=== PATIENT | female | born 1955 | race Caucasian/White ===

== ENCOUNTER → 2016-09-30 | Outpatient (CLI) | payer MEDICARE, OTHER ==
[2016-09-30 14:48] LABS: CH 31.1; HCT 40.3 % (34.0-46.0); HDW 2.14; HGB 13.9 gm/dL (11.4-16.0); MCH 31.8 pg (25.0-35.0); MCHC 34.5 g/dL (31.0-37.0); MCV 91.9 fL (80.0-100.0); Mean Platelet Volume 7.3; RBC 4.39 m/uL (3.80-5.40); RDW 12.3 % (11.5-15.5); WBC 10.7 k/uL (3.8-10.6)
[2016-09-30 14:58] LABS: Anion Gap 11 mmol/L; Blood Urea Nitrogen 21 mg/dL (7-17); Calcium 9.4 mg/dL (8.4-10.2); Carbon Dioxide 25 mmol/L (22-30); Chloride 107 mmol/L (98-107); Glucose 117 mg/dL (74-99); Non-African American GFR(MDRD) >60 (>60 ml/min/1.73 sqM); Potassium 4.2 mmol/L (3.5-5.1); Sodium 143 mmol/L (137-145)
== END | disposition home or self-care (01) ==
LOC: LABWHC1 14:28
PROVIDERS: ATTEND Internal Medicine Clinical Cardiac Electrophysiology
DX: I47.1 Supraventricular tachycardia (principal); R03.0 Elevated blood-pressure reading, without diagnosis of hypertension
CPT/HCPCS: 36415; 80048; 85027

== ENCOUNTER 2016-10-10 11:46 | Day surgery (SDC) | payer MEDICARE, OTHER ==
[2016-10-03 11:02] VITALS: BMI 25.8
[~2016-10-10 11:46] MED LIST: DEXAMETHASONE SOD PHOSPHATE 10 MG/ML 1 ML VIAL IV ONE; HYDROmorphone 1 MG/ML 1 ML SYRINGE IVP PRN; LACTATED RINGERS 1,000 ML IV SCH; MIDAZOLAM 2 MG/2 ML VIAL IV PRN; ONDANSETRON 4 MG/2 ML VIAL IVP ONE
[2016-10-10] MEDS: SODIUM CHLORIDE 0.9% 1,000 ML IV SCH (12:15)
[2016-10-10] MEDS ORDERED: KETAMINE 10 MG/ML 20 ML VIAL ONE (12:50)
[2016-10-10] MEDS ORDERED: PROPOFOL 10 MG/ML 20 ML VIAL IV ONE (12:50)
[2016-10-10] MEDS ORDERED: ISOPROTERENOL 250 MCG/1.25 ML SYR IV ONE (12:50)
[2016-10-10] MEDS ORDERED: fentaNYL (PF) 50 MCG/ML 2 ML AMP ONE (12:50)
[2016-10-10] MEDS ORDERED: MIDAZOLAM 2 MG/2 ML VIAL ONE (12:50)
[2016-10-10] MEDS ORDERED: IODIXANOL 320 MG/ML 100 ML IV ONE ×2 (13:23)
[2016-10-10] MEDS ORDERED: LIDOCAINE 2% INJ 20 MG/ML SQ ONE ×2 (13:28→13:37)
[2016-10-10] MEDS ORDERED: ACETAMINOPHEN TAB 325 MG TAB PO PRN (14:56)
[2016-10-10] MEDS ORDERED: VERAPAMIL SR 120 MG TABLET.ER PO ONE (15:15)
--- NOTE | 2016-10-10 15:41 | PCN ---
60 year old female with recurrent palpitations, drug refractory and intolerant to Flecainide. She was on Atenolol and she continued to have rapid, supraventricular tachycardia, possibly atrial tachycardia. She was brought in for diagnostic EP study and possible ablation. The patient was brought to the EP lab in a fasting state. Written informed consent was obtained prior to the procedure. The left shoulder area was prepped and draped as per protocol and a 6 Tunisian was placed in the left subclavian vein. Via this, a decapolar catheter was positioned in the coronary sinus for coronary sinus pacing and recording. Next the right groin was prepped and draped as per protocol and three venous sheaths were placed in the right femoral vein. Via these, three diagnostic catheters were positioned in the right heart (high right atrial catheter, His bundle catheter, RV catheter). Sinus cycle length, 696 milliseconds, SD interval 165 milliseconds, QRS 95 milliseconds, QT 375 milliseconds, AH 97 milliseconds, HV interval 35 milliseconds. AV node Wenckebach block 340 milliseconds, VA Wenckebach block 380 milliseconds , atrial ERP 500/320 milliseconds, HRAVA ERP 500/370 ms, atrial conduction midline decremental. AV node ERP from the coronary sinus was 500/280 ms. Burst stimulation from the high right atrium was performed. No SVT was induced. Burst stimulation from the CS was performed, no SVT was induced. Parahisian pacing was performed, malika response was noted. There was no evidence for accessory pathway conduction either antegrade or retrograde. There was no evidence for slow pathway conduction. Isuprel was started wide open and at 2 mcg and then reduced to 1 mcg. She had a brisk response to Isuprel. AV node Wenckebach block 260 ms, VA Wenckebach block improved to 320 ms. Atrial extra stimulation was performed from the high right atrium and from the right ventricle and as well as from the coronary sinus after double extra stimuli, no SVT was induced. Burst stimulation was performed from all three sites. No SVT was induced. Isuprel was stopped. Burst stimulation and straight pacing was performed from the high right atrium. No SVT was induced. In the baseline state, the patient had short slow runs of high to low sequence, very similar to the sinus beats but there was no clear cut supraventricular tachycardia, sustained, that was induced. There was possibility of sinus node reentry while present could not really be proven either. At the end of the procedure, all catheters were removed and the patient was transferred back to telemetry. RESULT: Diagnostic EP study revealing normal sinus node function, normal AV node function, no evidence of slow pathway ( ) conduction, no evidence for accessory pathway conduction. No inducible supraventricular ventricular tachycardia. No atrial fibrillation could be induced despite burst pacing on high dose Isuprel. PLAN: The patient was intolerant of Flecainide. She is breaking through on Atenolol. I will treat her with Verapamil possibly 40 mg twice daily. If she continues to have these episodes and if we can document atrial fibrillation, then I may consider pulmonary vein isolation. However, I prefer to treat her medically at this point. MTDD
--- NOTE | 2016-10-10 16:10 | MISC ---
October 10, [address] Roy: I had the pleasure of seeing Greer Tolliver in electrophysiology follow up. Greer has a history of recurrent SVT, possibly atrial tachycardia. I brought her in for an EP study. She had no evidence of AV malika re-entry or accessory pathway conduction. I could not induce any specific atrial tachycardia. Therefore at this time, I do not have a clear cut diagnosis of atrial tachycardia or atrial fibrillation, but I will treat her with verapamil since her event monitor has shown very rapid SVT, possibly rapid atrial tachycardia. If she continues to have breakthrough episodes pulmonary vein isolation may be considered, but I will have to document this on event monitoring again before I proceed with this since we were not able to induce any arrhythmias on EP study. However, it is very clear that she does not have AV malika re-entry or any accessory pathway conduction at this time. Thank you for entrusting us with the care of your patient. Warm regards. Sincerely, SANJU
[2016-10-11] MEDS: SODIUM CHLORIDE 0.9% 1,000 ML IV SCH (06:24)
--- NOTE | 2016-10-11 08:10 | DS ---
Greer is doing well. Her groins have healed well. there is in hematoma. There is minimal tenderness. Subclavian site is healed well. Heart sounds are normal. No murmurs. No gallops. No rub. Breath sounds are normal. No rhonchi. No crackles. Abdomen soft, nontender. Extremities warm. No edema. IMPRESSION: 1. Recurrent palpitations with documented supraventricular tachycardia. Likely atrial tachycardia/rapid atrial fibrillation with rapid ventricular rate. 2. Diagnostic EP study did not reveal any evidence of slow pathway conduction or AV malika reentry or any accessory pathway conduction. Therefore, no ablation was performed. Atrial fibrillation was not inducible. PLAN: The patient is intolerant of Flecainide and as atenolol does not control her symptoms, we will switch her to Verapamil 40 mg twice day. I may increase it further to 120 mg po daily long acting prep if she is able to tolerate this from a blood pressure standpoint. We will see her in a week's time and then I will see her again in about three to four months. If future event monitors document further AFIB with RVR, pulmonary vein isolation may be considered. SANJU
[2016-10-11 08:31] VITALS: BP 118/56; PULSE 80; RESP 16; TEMP 98.2
[2016-10-11] MEDS ORDERED: LETROZOLE 2.5 MG TAB PO SCH (09:00)
[2016-10-11] MEDS ORDERED: VERAPAMIL 40 MG TAB PO SCH (09:00)
[2016-10-11] MEDS ORDERED: VERAPAMIL SR 120 MG TABLET.ER PO SCH (09:00)
== END 2016-10-11 11:30 | disposition home or self-care (01) ==
LOC: CATHEP 11:46 → 3OBS 14:54 → CATHEP 10-11 11:30
PROVIDERS: ATTEND Internal Medicine Clinical Cardiac Electrophysiology
DX: I47.1 Supraventricular tachycardia (principal); Z82.49 Family history of ischemic heart disease and other diseases of the circulatory system; Z79.899 Other long term (current) drug therapy; Z79.811 Long term (current) use of aromatase inhibitors
CPT/HCPCS: 93623; 93620; C1894; C1769; C1730 ×3; J2001; Q9967

== ENCOUNTER 2017-04-04 17:59 | Emergency (ER) | payer MEDICARE, OTHER ==
--- NOTE | 2017-04-04 18:36 | ED ---
Chest Pain HPI - General Chief Complaint: Chest Pain Stated Complaint: Chest Pain Time Seen by Provider: 04/04/17 18:10 Source: patient, RN notes reviewed, old records reviewed Mode of arrival: ambulatory Limitations: no limitations - History of Present Illness Initial Comments: This is a 61-year-old female who presents with complaints of intermittent fast heart rate over last week or last minutes at a time also some lower midsternal chest pain sharp heartburn like in nature mild to moderate in severity also last a few minutes she did feeling tired lately to noticing her heart rate going fast or intermittently lately. No fevers chills sweats nausea vomiting or other symptoms she states she had a cath in October of this year which was negative. She is scheduled to have a heart monitor be placed she states Dr. So believes she may be in A. fib sporadically MD Complaint: chest pain, other - Related Data Home Medications Medication Instructions Recorded Confirmed Letrozole [Femara] 2.5 mg PO DAILY 10/03/16 04/04/17 Verapamil HCl 120 mg PO DAILY 04/04/17 04/04/17 Previous Rx's Medication Instructions Recorded Ibuprofen 800 mg PO Q6HR PRN #20 tablet 04/04/17 Allergies Allergy/AdvReac Type Severity Reaction Status Date / Time No Known Allergies Allergy Verified 04/04/17 18:44 Review of Systems ROS Statement: Those systems with pertinent positive or pertinent negative responses have been documented in the HPI. ROS Other: All systems not noted in ROS Statement are negative. EKG Findings - EKG Results: EKG: interpreted by ERMD, sinus rhythm (Sinus tachycardia rate of 104. Interval 170 QRS duration 80 daily since QTC of 362/476. Crit here for LVH nonspecific ST configuration.) Past Medical History Past Medical History: Atrial Fibrillation, Cancer, GERD/Reflux Additional Past Medical History / Comment(s): hx. breast cancer History of Any Multi-Drug Resistant Organisms: None Reported Past Surgical History: Ablation, Cholecystectomy, Orthopedic Surgery Additional Past Surgical History / Comment(s): right knee surg., colonoscopy, cataract removal with lens implant, CARDIAC ABLATION Past Anesthesia/Blood Transfusion Reactions: No Reported Reaction Past Psychological History: Anxiety Smoking Status: Never smoker Past Alcohol Use History: None Reported Past Drug Use History: None Reported - Past Family History Mother Family Medical History: Cancer Father Family Medical History: Cancer General Exam - General Exam Comments Initial Comments: This is a well-developed well-nourished awake alert oriented 3 female Limitations: no limitations General appearance: alert, in no apparent distress, anxious Head exam: Present: atraumatic, normocephalic, normal inspection Eye exam: Present: normal appearance, PERRL, EOMI. Absent: scleral icterus, conjunctival injection, periorbital swelling ENT exam: Present: normal exam, mucous membranes moist Neck exam: Present: normal inspection. Absent: tenderness, meningismus, lymphadenopathy Respiratory exam: Present: normal lung sounds bilaterally. Absent: respiratory distress, wheezes, rales, rhonchi, stridor Cardiovascular Exam: Present: regular rate, normal rhythm, normal heart sounds. Absent: systolic murmur, diastolic murmur, rubs, gallop, clicks GI/Abdominal exam: Present: soft, normal bowel sounds. Absent: distended, tenderness, guarding, rebound, rigid Extremities exam: Present: normal inspection, full ROM, normal capillary refill. Absent: tenderness, pedal edema, joint swelling, calf tenderness Back exam: Present: normal inspection Neurological exam: Present: alert, oriented X3, CN II-XII intact Psychiatric exam: Present: normal affect, normal mood Skin exam: Present: warm, dry, intact, normal color. Absent: rash Course Vital Signs 04/04/17 04/04/17 18:01 20:26 Temperature 97.1 F L Pulse Rate 120 H 88 Respiratory 18 18 Rate Blood Pressure 168/79 123/65 O2 Sat by Pulse 97 99 Oximetry - Reevaluation(s) Reevaluation #1: 04/04/17 18:46 EKG was reviewed no changes from 10/11/2016. Chest Pain MDM - MDM I did review the imaging and reports no evidence of pulmonary embolism. I did discuss Pf[employer] the patient the presentation is consistent with costochondritis and xiphoid any patient will be at discharged on appropriate medication. Disposition Clinical Impression: Costalchondritis, Chest wall syndrome, Xiphoid pain Disposition: HOME SELF-CARE Condition: Good Instructions: Costochondritis (ED) Prescriptions: Ibuprofen 800 mg PO Q6HR PRN #20 tablet PRN Reason: Pain Referrals: Demarco Roy MD [Primary Care Provider] - 1-2 days
[2017-04-04 18:59] LABS: Basophils # (A) 0.1 k/uL (0-0.2); Basophils % (A) 0 %; Eosinophils # (A) 0.2 k/uL (0-0.7); Eosinophils % (A) 1 %; HCT 41.1 % (34.0-46.0); HGB 13.5 gm/dL (11.4-16.0); Lymphocytes # (A) 2.4 k/uL (1.0-4.8); Lymphocytes % (A) 20 %; MCH 30.1 pg (25.0-35.0); MCV 91.3 fL (80.0-100.0); Mean Platelet Volume 6.9; Monocytes # (A) 0.7 k/uL (0-1.0); Monocytes % (A) 6 %; Neutrophils # (A) 8.3 k/uL (1.3-7.7); Neutrophils % (A) 70 %; Platelet Count 295 k/uL (150-450); RDW 12.2 % (11.5-15.5); WBC 11.8 k/uL (3.8-10.6)
[2017-04-04 19:05] LABS: D-Dimer 0.8 mg/L FEU (<0.60)
[2017-04-04 19:08] LABS: ALT 53 U/L (9-52); AST 26 U/L (14-36); Albumin 3.8 g/dL (3.5-5.0); Alkaline Phosphatase 71 U/L (38-126); Amylase 30 U/L (30-110); Anion Gap 11 mmol/L; Blood Urea Nitrogen 23 mg/dL (7-17); Calcium 9.8 mg/dL (8.4-10.2); Carbon Dioxide 27 mmol/L (22-30); Chloride 105 mmol/L (98-107); Glucose 121 mg/dL (74-99); Lipase 87 U/L (23-300); Magnesium 1.9 mg/dL (1.6-2.3); Potassium 3.7 mmol/L (3.5-5.1); Sodium 143 mmol/L (137-145); Total Bilirubin 0.3 mg/dL (0.2-1.3); Total Protein 6.4 g/dL (6.3-8.2)
[2017-04-04 19:09] LABS: Partial Thromboplastin Time 23.5 sec (22.0-30.0); Prothrombin Time 10.2 sec (9.0-12.0)
[2017-04-04 19:17] LABS: Creatine Kinase 87 U/L (30-135)
[2017-04-04 19:29] LABS: Creatine Kinase MB 1.2 ng/mL (0.0-2.4); Troponin I <0.012 ng/mL (0.000-0.034)
--- NOTE | 2017-04-04 19:29 | XR ---
EXAMINATION TYPE: XR chest 2V DATE OF EXAM: 04/04/2017 COMPARISON: 01/17/2014 HISTORY: Chest pain TECHNIQUE: Frontal and lateral views of the chest are obtained. FINDINGS: Heart is normal. Lungs are clear of consolidation. There are no hilar masses. There are ch est leads. There are surgical clips over the left breast. Bony thorax appears intact. There is mild r eticular density in the lingula left upper lobe. IMPRESSION: There is some scarring in the lingula left upper lobe. No active cardiopulmonary disease . No change.
[2017-04-04] MEDS ORDERED: RX INFO: IV CONTRAST WAS GIVEN 1 EACH MISC MISCELLANE PRN (19:51)
--- NOTE | 2017-04-04 20:39 | CT ---
EXAMINATION TYPE: CT angio chest DATE OF EXAM: 04/04/2017 8:31 PM COMPARISON: NONE HISTORY: Mid chest pain today. CT DLP: 579.00 mGycm Automated exposure control for dose reduction was used. CONTRAST: CTA scan of the thorax is performed with IV Contrast, patient injected with 75 mL of Omnipaque 350, p ulmonary embolism protocol. There are 3-D post processed images.. FINDINGS: There is normal contrast opacification of the pulmonary arteries. I see no filling defects. Thoracic aorta appears normal. There is no evidence of mediastinal adenopathy. There are no hilar masses. Hear t size is fairly normal. There is mild coarsening of interstitial pulmonary markings. There is no evidence of a pulmonary mass . There is no pleural effusion. I see no bony destructive process. There is mild spurring in the thor acic spine. IMPRESSION: NO EVIDENCE OF PULMONARY EMBOLISM. MILD PULMONARY FIBROTIC CHANGES.
[2017-04-05 23:11] VITALS: BP 120/65; PULSE 94; RESP 18; TEMP 97.4
== END 2017-04-04 21:34 | disposition home or self-care (01) ==
LOC: EC 17:59
DX: M94.0 Chondrocostal junction syndrome [Tietze] (principal); I48.91 Unspecified atrial fibrillation; Z85.3 Personal history of malignant neoplasm of breast; Z79.899 Other long term (current) drug therapy
CPT/HCPCS: 99285 ×2; 36415; 93005; 85379; 83880; 80053; 84443; 82150; 82550; 82553; 83690; 83735; 84484; 85025; 85610; 85730; 71046; 71275; Q9967

== ENCOUNTER → 2018-05-25 | Outpatient (CLI) | payer MEDICARE, OTHER ==
--- NOTE | 2018-05-25 15:42 | US ---
EXAMINATION TYPE: US pelvic complete DATE OF EXAM: 05/25/2018 COMPARISON: CT CLINICAL HISTORY: R10.2 Pelvic Pain. TECHNIQUE: Transvaginal (TV) and Transabdominal (TA) . Transabdominal sonographic images of the pelvis were acquired. Transvaginal sonographic images were medically necessary to better assess the following anatomy: Date of LMP: Patient went through menopause at 48 EXAM MEASUREMENTS: Uterus: 5.4 x 2.3 x 2.8 cm Endometrial Stripe: 0.62 cm. 3mm of fluid in endometrium Right Ovary: 0.7 x 0.6 x 0.7 cm Left Ovary: obscured by bowel gas and atrophy 1. Uterus: Anteverted 2. Endometrium: 3mm of fluid in endometrium 3. Right Ovary: wnl 4. Left Ovary: Obscured by overlying bowel gas 5. Bilateral Adnexa: wnl 6. Posterior cul-de-sac: wnl IMPRESSION: 1. Small amount fluid through the endometrial canal. MTDD
== END | disposition home or self-care (01) ==
LOC: RADUSWWP 08:58
PROVIDERS: ATTEND Internal Medicine
DX: N85.8 Other specified noninflammatory disorders of uterus (principal); R10.2 Pelvic and perineal pain
CPT/HCPCS: 76830; 76856

== ENCOUNTER → 2018-08-29 | Outpatient (CLI) | payer MEDICARE, OTHER ==
[2018-08-29 18:38] LABS: Albumin 4.3 g/dL (3.80-4.90); Albumin/Globulin Ratio 2.05 (1.60-3.17); Anion Gap 9.4 mmol/L (4.00-12.00); Calcium 9.6 mg/dL (8.7-10.3); Carbon Dioxide 26.6 mmol/L (21.6-31.8); Globulin 2.1 g/dL (1.6-3.3); LDL Cholesterol,Calculated 76.6 mg/dL (0.0-131.0); Potassium 4.2 mmol/L (3.5-5.5); Total Bilirubin 0.5 mg/dL (0.2-1.2); Total Protein 6.4 g/dL (6.2-8.2); VLDL Calculation 16.4 mg/dL (5.00-40.00)
== END | disposition home or self-care (01) ==
LOC: LABWHC1 14:30
PROVIDERS: ATTEND Internal Medicine Clinical Cardiac Electrophysiology
DX: I10 Essential (primary) hypertension (principal); R00.2 Palpitations
CPT/HCPCS: 36415; 80053; 80061; 84443

== ENCOUNTER 2019-04-23 20:27 | Emergency (ER) | payer MEDICARE, OTHER ==
[2019-04-23 20:39] VITALS: RESP 18; TEMP 98.9
[2019-04-23] MEDS ORDERED: SODIUM CHLORIDE 0.9% 1,000 ML IV STA (20:56)
--- NOTE | 2019-04-23 21:01 | ED ---
General Adult HPI - General Chief complaint: Arrhythmia/Palpitations Stated complaint: arrhythmia Time Seen by Provider: 04/23/19 20:37 Source: patient, RN notes reviewed Mode of arrival: EMS Limitations: no limitations - History of Present Illness Initial comments: Patient is a pleasant 63-year-old female presenting to the emergency department palpitations. Onset of symptoms was a couple of hours ago. Patient feels her heart is skipping and sometimes going fast. Patient does have a history of similar symptoms previously associated with PACs. Patient has seen cardiology for this. There was discussion was whether or not to have cardiac ablation. No chest pain or dyspnea. Patient does admit to drinking some caffeinated pop. No energy drinks or diet pills. - Related Data Home Medications Medication Instructions Recorded Confirmed Verapamil HCl 120 mg PO HS 04/04/17 04/23/19 Aspirin EC [Ecotrin Low Dose] 81 mg PO DAILY PRN 04/23/19 04/23/19 Dicyclomine [Bentyl] 10 mg PO TID PRN 04/23/19 04/23/19 Allergies Allergy/AdvReac Type Severity Reaction Status Date / Time No Known Allergies Allergy Verified 04/23/19 21:05 Review of Systems ROS Statement: Those systems with pertinent positive or pertinent negative responses have been documented in the HPI. ROS Other: All systems not noted in ROS Statement are negative. Past Medical History Past Medical History: Atrial Fibrillation, Cancer, GERD/Reflux Additional Past Medical History / Comment(s): hx. breast cancer History of Any Multi-Drug Resistant Organisms: None Reported Past Surgical History: Ablation, Cholecystectomy, Orthopedic Surgery Additional Past Surgical History / Comment(s): right knee surg., colonoscopy, cataract removal with lens implant, CARDIAC ABLATION Past Anesthesia/Blood Transfusion Reactions: No Reported Reaction Past Psychological History: Anxiety Smoking Status: Never smoker Past Alcohol Use History: None Reported Past Drug Use History: None Reported - Past Family History Mother Family Medical History: Cancer Father Family Medical History: Cancer General Exam Limitations: no limitations Course Vital Signs 04/23/19 20:37 Temperature 98.9 F Pulse Rate 99 Respiratory 18 Rate Blood Pressure 153/80 O2 Sat by Pulse 97 Oximetry - Reevaluation(s) Reevaluation #1: 04/23/19 21:00 Patient was advised against caffeine use. Patient does complain of palpitations simultaneously with premature atrial complexes on cardiac technologist. EKG Findings - EKG Comments: EKG Findings:: Sinus rhythm and 96. PVC is present. NE 140. QRS 92. QT 380. QTC 480. Left axis. LVH criteria. Nonspecific ST-T. Medical Decision Making - Medical Decision Making Patient evaluated and resting comfortably in bed. Patient occasionally with palpitations but not as severe. Patient updated on results and need for follow- up. - Lab Data Result diagrams: 04/23/19 20:40 04/23/19 20:40 Lab Results 04/23/19 04/23/19 Range/Units 20:40 20:40 WBC 12.3 H (3.8-10.6) k/uL RBC 4.54 (3.80-5.40) m/uL Hgb 14.2 (11.4-16.0) gm/dL Hct 41.7 (34.0-46.0) % MCV 91.8 (80.0-100.0) fL MCH 31.3 (25.0-35.0) pg MCHC 34.1 (31.0-37.0) g/dL RDW 12.0 (11.5-15.5) % Plt Count 283 (150-450) k/uL Neutrophils % 72 % Lymphocytes % 20 % Monocytes % 4 % Eosinophils % 2 % Basophils % 1 % Neutrophils # 8.8 H (1.3-7.7) k/uL Lymphocytes # 2.4 (1.0-4.8) k/uL Monocytes # 0.5 (0-1.0) k/uL Eosinophils # 0.3 (0-0.7) k/uL Basophils # 0.1 (0-0.2) k/uL Sodium 141 (137-145) mmol/L Potassium 3.9 (3.5-5.1) mmol/L Chloride 110 H (98-107) mmol/L Carbon Dioxide 21 L (22-30) mmol/L Anion Gap 10 mmol/L BUN 17 (7-17) mg/dL Creatinine 0.60 (0.52-1.04) mg/dL Est GFR (CKD-EPI)AfAm >90 (>60 ml/min/1.73 sqM) Est GFR (CKD-EPI)NonAf >90 (>60 ml/min/1.73 sqM) Glucose 127 H (74-99) mg/dL Calcium 9.2 (8.4-10.2) mg/dL Magnesium 2.0 (1.6-2.3) mg/dL Total Bilirubin 0.5 (0.2-1.3) mg/dL AST 27 (14-36) U/L ALT 19 (4-34) U/L Alkaline Phosphatase 68 (38-126) U/L Total Protein 6.9 (6.3-8.2) g/dL Albumin 3.9 (3.5-5.0) g/dL TSH 1.330 (0.465-4.680) mIU/L Free T4 0.82 (0.78-2.19) ng/dL Free T3 pg/mL 3.9 (2.8-5.3) pg/ml - Radiology Data Radiology results: image reviewed (Chest x-ray shows surgical clips of the left breast. Normal sclerae left base, unchanged. Normal heart.) Disposition Clinical Impression: Premature atrial contraction Disposition: HOME SELF-CARE Condition: Stable Instructions (If sedation given, give patient instructions): Premature Atrial Contractions (ED) Additional Instructions: Please follow-up with cardiology and your primary care physician this week. Return for increased heart rate, pain, worsening symptoms or other concerns. You may take an additional one half pill of your verapamil in the morning if needed until follow-up and further advised. Is patient prescribed a controlled substance at d/c from ED?: No Referrals: Demarco Roy MD [Primary Care Provider] - 1-2 days Time of Disposition: 21:57
[2019-04-23 21:10] LABS: Basophils # (A) 0.1 k/uL (0-0.2); Basophils % (A) 1 %; Eosinophils # (A) 0.3 k/uL (0-0.7); Eosinophils % (A) 2 %; HCT 41.7 % (34.0-46.0); HGB 14.2 gm/dL (11.4-16.0); Lymphocytes # (A) 2.4 k/uL (1.0-4.8); Lymphocytes % (A) 20 %; MCH 31.3 pg (25.0-35.0); MCHC 34.1 g/dL (31.0-37.0); MCV 91.8 fL (80.0-100.0); Mean Platelet Volume 7.3; Monocytes # (A) 0.5 k/uL (0-1.0); Monocytes % (A) 4 %; Neutrophils # (A) 8.8 k/uL (1.3-7.7); Neutrophils % (A) 72 %; Platelet Count 283 k/uL (150-450); RBC 4.54 m/uL (3.80-5.40); WBC 12.3 k/uL (3.8-10.6)
[2019-04-23 21:19] LABS: ALT 19 U/L (4-34); AST 27 U/L (14-36); African American GFR (CKD) >90 (>60 ml/min/1.73 sqM); Albumin 3.9 g/dL (3.5-5.0); Alkaline Phosphatase 68 U/L (38-126); Anion Gap 10 mmol/L; Blood Urea Nitrogen 17 mg/dL (7-17); Calcium 9.2 mg/dL (8.4-10.2); Carbon Dioxide 21 mmol/L (22-30); Chloride 110 mmol/L (98-107); Glucose 127 mg/dL (74-99); Non-African American GFR(CKD) >90 (>60 ml/min/1.73 sqM); Potassium 3.9 mmol/L (3.5-5.1); Sodium 141 mmol/L (137-145); Total Bilirubin 0.5 mg/dL (0.2-1.3); Total Protein 6.9 g/dL (6.3-8.2)
--- NOTE | 2019-04-23 21:31 | XR ---
EXAMINATION TYPE: XR chest 2V DATE OF EXAM: 04/23/2019 COMPARISON: April 04, 2017 HISTORY: Dysrhythmia TECHNIQUE: FINDINGS: Heart is normal. Lungs are clear of consolidation. There is surgical clips over the left br east. There is small linear density left lung base. There is no pleural effusion. Bony thorax is inta ct. IMPRESSION: Previous surgery. Minimal scarring left lung base unchanged. Normal heart.
[2019-04-23 21:36] LABS: T4, Free (Free Thyroxine) 0.82 ng/dL (0.78-2.19)
[2019-04-23] MEDS ORDERED: VERAPAMIL 40 MG TAB PO STA (21:54)
[2019-04-23 22:18] VITALS: BP 129/63; PULSE 83
--- NOTE | 2019-04-25 05:13 | CDI ---
Dear Glenn Berumen DO: Please do addendum Physical Examination. Thank you, Se Zafar, Outreach Nurse. If you have any questions, please contact Casework Supervisor at [phone]. mtdD
== END 2019-04-23 22:34 | disposition home or self-care (01) ==
LOC: EC 20:27
DX: I49.1 Atrial premature depolarization (principal); I48.91 Unspecified atrial fibrillation; Z79.899 Other long term (current) drug therapy; Z85.3 Personal history of malignant neoplasm of breast; Z98.890 Other specified postprocedural states
CPT/HCPCS: 36415; 71046; 80053; 83735; 84439; 84443; 84481; 85025; 93005; 96360; 99285

== ENCOUNTER → 2019-11-11 | Outpatient (CLI) | payer MEDICARE, OTHER ==
[2019-11-11 08:32] LABS: HCT 43.9 % (34.0-46.0); HGB 14.4 gm/dL (11.4-16.0); MCH 30.1 pg (25.0-35.0); MCHC 32.7 g/dL (31.0-37.0); Mean Platelet Volume 7.2; Platelet Count 314 k/uL (150-450); RBC 4.77 m/uL (3.80-5.40); RDW 12.5 % (11.5-15.5); WBC 9.4 k/uL (3.8-10.6)
[2019-11-11 16:31] LABS: Albumin/Globulin Ratio 1.9 (1.60-3.17); Anion Gap 6.5 mmol/L (4.00-12.00); Calcium 9.3 mg/dL (8.7-10.3); Carbon Dioxide 26.5 mmol/L (21.6-31.8); Chol/HDL Ratio 4.06; Globulin 2.1 g/dL (1.6-3.3); Non-African American GFR(CKD) 76.8 (60.0-200.0); Potassium 4.4 mmol/L (3.5-5.5); Total Bilirubin 0.8 mg/dL (0.3-1.2); Total Protein 6.1 g/dL (6.2-8.2)
== END | disposition home or self-care (01) ==
LOC: LABWHC1 07:21
PROVIDERS: ATTEND Physician Assistant
DX: E78.5 Hyperlipidemia, unspecified (principal); R53.83 Other fatigue; I47.1 Supraventricular tachycardia; E55.9 Vitamin D deficiency, unspecified
CPT/HCPCS: 36415; 80053; 80061; 82306; 82607; 84443; 85027

== ENCOUNTER → 2020-03-09 | Outpatient (CLI) | payer MEDICARE, OTHER ==
--- NOTE | 2020-03-10 11:32 | BMR ---
EXAMINATION TYPE: MR breast BILAT wo/w con DATE OF EXAM: 03/09/2020 COMPARISON: Outside Bilateral breast mammogram November 20, 2019 BI-RADS 2 and older mammograms. CTA ch est April 04, 2017 HISTORY: Left breast pain, hx lt breast cancer diagnosed 2009. TECHNIQUE: A series of fat and water weighted images in the long and short axis views of both breasts are obtained in conjunction with dynamic contrast MRI with subtraction technique. The patient was i njected with 8 mL intravenous Gadavist gadolinium contrast. Three-dimensional and additional postpr ocessing imaging is created on independent workstation and reviewed during official interpretation of this study. FINDINGS: There is redemonstration of asymmetric diminished size to the left breast versus right negin st. There is heterogeneously dense fibroglandular tissue redemonstrated bilaterally. Occasional punct ate thin-walled cyst are scattered throughout both breasts on T2 and STIR weighted images. No suspici ous fat-containing masses on T1 axial images. Postcontrast images show mild/moderate background enhan cement slightly more prominent in the left breast versus right breast. Delayed dynamic postcontrast i maging shows no suspicious new intramammary adenopathy. No concerning new axillary adenopathy is note d bilaterally. With regards to the right breast. No suspicious enhancing masses or pathologic enhancement. No suspic ious skin thickening is seen. The chest wall is intact. With regards to the left breast there is stable oval thin-walled fluid collection with artifact from surrounding surgical clips representing small seroma in the posterior lateral mid to lower chest wall axial image 19 series 301. No pathologic enhancement or enhancing masses identified. No suspicious n ew skin thickening seen. Chronic nipple inversion or scarring bilateral lower left breast axial image 36 series 601 noted unchanged from 2018 CT. Underlying cardiomegaly is present. IMPRESSION: No MRI evidence for invasive malignancy in either breast. Stable posttreatment changes le ft breast. BI-RADS 2 benign findings right breast. BI-RADS 2 benign findings left breast. Recommendation: Manage patient on clinical basis. Return to routine follow-up, patient due for bilate ral breast mammogram monitoring in November 2020.
== END | disposition home or self-care (01) ==
LOC: RADMRIMAIN 14:09
PROVIDERS: ATTEND Internal Medicine Hematology & Oncology
DX: N64.4 Mastodynia (principal); C50.512 Malignant neoplasm of lower-outer quadrant of left female breast; Z98.890 Other specified postprocedural states
CPT/HCPCS: C8937; C8908; A9585; 77049

== ENCOUNTER → 2021-09-27 | Outpatient (CLI) | payer MEDICARE, OTHER ==
--- NOTE | 2021-09-28 00:58 | CT ---
EXAMINATION TYPE: CT sinus wo con DATE OF EXAM: 09/27/2021 COMPARISON: CT dated 06/18/2012 HISTORY: CHRONIC SINUSITIS CT DLP: 728.2 mGycm. Automated Exposure Control for Dose Reduction was Utilized. TECHNIQUE: CT scan of the sinuses is performed without contrast, axial images are obtained, coronal r eformatted images are also reviewed. FINDINGS: Deviated bony nasal septum convex to the right side with a small bony spur. Slight remodeling of the right inferior turbinate. Minimal mucosal thickening of the inferior aspect of the left middle crania l fossa. Pneumatization of the left vertical lamella. Patent infundibulum and ostiomeatal complex vamsi aterally. Clear maxillary sinuses, frontal sinus, ethmoid air cells and sphenoid sinus. Patent sphenoethmoidal recesses. Clear right mastoid air cells. Slightly hypopneumatized left mastoid air cells. Unremarkabl e visualized portion of the brain and orbits. Symmetrical unremarkable TMJs. IMPRESSION: No evidence of acute or chronic sinusitis. Deviated bony nasal septum and other findings as described above.
== END | disposition home or self-care (01) ==
LOC: RADCTMAIN 18:14
PROVIDERS: ATTEND Otolaryngology
DX: J32.9 Chronic sinusitis, unspecified (principal)
CPT/HCPCS: 70486

== ENCOUNTER 2021-10-05 15:46 | Emergency (ER) | payer MEDICARE, OTHER ==
[2021-10-05 15:50] VITALS: RESP 18
[2021-10-05 17:15] LABS: Basophils # (A) 0.1 k/uL (0-0.2); Basophils % (A) 1 %; Eosinophils # (A) 0.3 k/uL (0-0.7); Eosinophils % (A) 3 %; HCT 41.8 % (34.0-46.0); HGB 14.1 gm/dL (11.4-16.0); Lymphocytes # (A) 1.6 k/uL (1.0-4.8); Lymphocytes % (A) 14 %; MCH 31.5 pg (25.0-35.0); MCHC 33.8 g/dL (31.0-37.0); Mean Platelet Volume 7.6; Monocytes # (A) 0.6 k/uL (0-1.0); Monocytes % (A) 5 %; Neutrophils % (A) 77 %; Platelet Count 276 k/uL (150-450); RBC 4.49 m/uL (3.80-5.40); RDW 11.9 % (11.5-15.5); WBC 11.7 k/uL (3.8-10.6)
[2021-10-05 17:26] LABS: ALT 18 U/L (4-34); African American GFR (CKD) >90 (>60 ml/min/1.73 sqM); Anion Gap 9 mmol/L; Blood Urea Nitrogen 23 mg/dL (7-17); Calcium 8.9 mg/dL (8.4-10.2); Carbon Dioxide 23 mmol/L (22-30); Chloride 109 mmol/L (98-107); Glucose 123 mg/dL (74-99); Non-African American GFR(CKD) 82 (>60 ml/min/1.73 sqM); Sodium 141 mmol/L (137-145); Total Bilirubin 0.6 mg/dL (0.2-1.3); Total Protein 6.8 g/dL (6.3-8.2)
[2021-10-05 17:29] LABS: Partial Thromboplastin Time 24.5 sec (22.0-30.0); Prothrombin Time 10.7 sec (9.0-12.0)
[2021-10-05 17:32] LABS: AST 25 U/L (14-36); Alkaline Phosphatase 54 U/L (38-126); Magnesium 2.1 mg/dL (1.6-2.3); Potassium 4.4 mmol/L (3.5-5.1)
[2021-10-05 17:45] LABS: MCV 93.1 fL (80.0-100.0)
[2021-10-05 17:48] LABS: Amphetamine Screen,Urine Not Detected (NotDetected); Appearance,Urine Clear (Clear); Barbiturate Screen,Urine Not Detected (NotDetected); Benzodiazepines Screen,Urine Not Detected (NotDetected); Bilirubin,Urine Negative (Negative); Blood,Urine Moderate (Negative); Cocaine Screen,Urine Not Detected (NotDetected); Color,Urine Yellow; Glucose,Urine (UA) Negative (Negative); Hyaline Casts,Urine 8 /lpf (0-2); Ketones,Urine Negative (Negative); Leukocyte Esterase,Urine Negative (Negative); Methadone Screen, Urine Not Detected (NotDetected); Mucus,Urine Rare /hpf; Nitrite,Urine Negative (Negative); Opiate Screen,Urine Not Detected (NotDetected); Oxycodone Screen, Urine Not Detected (NotDetected); Phencyclidine Screen,Urine Not Detected (NotDetected); Protein,Urine Trace (Negative); RBC,Urine 21 /hpf (0-5); Specific Gravity,Urine 1.027 (1.001-1.035); Squamous Epithelial Cell,Urine <1 /hpf (0-4); Tricyclic Antidepressant,Urine Not Detected (NotDetected); Urn Cannabinoid Scrn Not Detected (NotDetected); Urobilinogen,Urine <2.0 mg/dL (<2.0); WBC,Urine 1 /hpf (0-5)
--- NOTE | 2021-10-05 17:53 | XR ---
EXAMINATION TYPE: XR chest 2V DATE OF EXAM: 10/05/2021 COMPARISON: 04/23/2019 HISTORY: Dysrhythmia TECHNIQUE: FINDINGS: There is no heart failure not confluent pneumonic infiltrate. Costophrenic angles are clear . There is clips over the left breast. Bony thorax is intact. IMPRESSION: No active cardiopulmonary disease. Minimal density over the left lung base could be some postsurgical changes in the lingula left upper lobe. No change compared to old exam.
--- NOTE | 2021-10-05 18:33 | ED ---
Arrhythmia/Palpitations HPI - General Chief Complaint: Arrhythmia/Palpitations Stated Complaint: chest pain Time Seen by Provider: 10/05/21 16:27 Source: patient Mode of arrival: ambulatory Limitations: no limitations - History of Present Illness Initial Comments: Patient complains of palpitations. This has been going on for a long time. Nothing makes it better or worse. She has taken no medicines. She has been diagnosed with atrial fibrillation in the past. She has no swelling in the arms or legs. She has no shortness of breath. She has no chest pain or pressure or tightness. She has no nausea or vomiting or diaphoresis. - Related Data Home Medications Medication Instructions Recorded Confirmed Dicyclomine [Bentyl] 10 mg PO TID PRN 04/23/19 10/05/21 Cholecalciferol [Vitamin D3 (25 25 mcg PO DAILY 10/05/21 10/05/21 Mcg = 1000 Iu)] Famotidine [Pepcid] 20 mg PO BID 10/05/21 10/05/21 atenoloL [Tenormin] 50 mg PO DAILY 10/05/21 10/05/21 Allergies Allergy/AdvReac Type Severity Reaction Status Date / Time No Known Allergies Allergy Verified 10/05/21 17:48 Review of Systems ROS Statement: Those systems with pertinent positive or pertinent negative responses have been documented in the HPI. ROS Other: All systems not noted in ROS Statement are negative. Past Medical History Past Medical History: Atrial Fibrillation, Cancer, GERD/Reflux Additional Past Medical History / Comment(s): hx. breast cancer History of Any Multi-Drug Resistant Organisms: None Reported Past Surgical History: Ablation, Cholecystectomy, Orthopedic Surgery Additional Past Surgical History / Comment(s): right knee surg., colonoscopy, cataract removal with lens implant, CARDIAC ABLATION Past Anesthesia/Blood Transfusion Reactions: No Reported Reaction Past Psychological History: Anxiety Past Alcohol Use History: None Reported Past Drug Use History: None Reported - Past Family History Mother Family Medical History: Cancer Father Family Medical History: Cancer General Exam Limitations: no limitations General appearance: alert, in no apparent distress Head exam: Present: atraumatic, normocephalic, normal inspection Eye exam: Present: normal appearance, PERRL, EOMI. Absent: scleral icterus, conjunctival injection, periorbital swelling ENT exam: Present: normal exam, mucous membranes moist Neck exam: Present: normal inspection. Absent: tenderness, meningismus, lymphadenopathy Respiratory exam: Present: normal lung sounds bilaterally. Absent: respiratory distress, wheezes, rales, rhonchi, stridor Cardiovascular Exam: Present: regular rate, normal rhythm, normal heart sounds. Absent: systolic murmur, diastolic murmur, rubs, gallop, clicks GI/Abdominal exam: Present: soft, normal bowel sounds. Absent: distended, tenderness, guarding, rebound, rigid Extremities exam: Present: normal inspection, full ROM, normal capillary refill. Absent: tenderness, pedal edema, joint swelling, calf tenderness Back exam: Present: normal inspection Neurological exam: Present: alert, oriented X3, CN II-XII intact Psychiatric exam: Present: normal affect, normal mood Skin exam: Present: warm, dry, intact, normal color. Absent: rash Course Vital Signs 10/05/21 10/05/21 15:47 17:11 Temperature 98.2 F Pulse Rate 78 76 Respiratory 18 18 Rate Blood Pressure 137/87 119/63 O2 Sat by Pulse 98 99 Oximetry EKG Findings - EKG Comments: EKG Findings:: Twelve-lead EKG shows ventricular rate 80 bpm, normal AK interval and QRS complexes, no ST elevation or depression, interpreted by me as normal sinus rhythm. Medical Decision Making - Medical Decision Making Patient complains of intermittent palpitations. She has remained on the classroom monitor and is in sinus rhythm throughout emerge arm. Laboratory studies are unremarkable. I recommended to the patient an observation stay to see cardiology. Patient states she cannot stay, and is following up with her doctors in less than a week. I advised her to return to the emergency department ever symptoms return or worsen. - Lab Data Result diagrams: 10/05/21 17:04 10/05/21 17:04 Lab Results 10/05/21 10/05/21 10/05/21 Range/Units 17:04 17:04 17:04 WBC 11.7 H (3.8-10.6) k/uL RBC 4.49 (3.80-5.40) m/uL Hgb 14.1 (11.4-16.0) gm/dL Hct 41.8 (34.0-46.0) % MCV 93.1 D (80.0-100.0) fL MCH 31.5 (25.0-35.0) pg MCHC 33.8 (31.0-37.0) g/dL RDW 11.9 (11.5-15.5) % Plt Count 276 (150-450) k/uL MPV 7.6 Neutrophils % 77 % Lymphocytes % 14 % Monocytes % 5 % Eosinophils % 3 % Basophils % 1 % Neutrophils # 9.0 H (1.3-7.7) k/uL Lymphocytes # 1.6 (1.0-4.8) k/uL Monocytes # 0.6 (0-1.0) k/uL Eosinophils # 0.3 (0-0.7) k/uL Basophils # 0.1 (0-0.2) k/uL PT 10.7 (9.0-12.0) sec INR 1.0 (<1.2) APTT 24.5 (22.0-30.0) sec Sodium 141 (137-145) mmol/L Potassium 4.4 (3.5-5.1) mmol/L Chloride 109 H (98-107) mmol/L Carbon Dioxide 23 (22-30) mmol/L Anion Gap 9 mmol/L BUN 23 H (7-17) mg/dL Creatinine 0.76 (0.52-1.04) mg/dL Est GFR (CKD-EPI)AfAm >90 (>60 ml/min/1.73 sqM) Est GFR (CKD-EPI)NonAf 82 (>60 ml/min/1.73 sqM) Glucose 123 H (74-99) mg/dL Calcium 8.9 (8.4-10.2) mg/dL Magnesium 2.1 (1.6-2.3) mg/dL Total Bilirubin 0.6 (0.2-1.3) mg/dL AST 25 (14-36) U/L ALT 18 (4-34) U/L Alkaline Phosphatase 54 (38-126) U/L Troponin I (0.000-0.034) ng/mL Total Protein 6.8 (6.3-8.2) g/dL Albumin 4.0 (3.5-5.0) g/dL TSH 0.888 (0.465-4.680) mIU/L Urine Color Urine Appearance (Clear) Urine pH (5.0-8.0) Ur Specific [place] (1.001-1.035) Urine Protein (Negative) Urine Glucose (UA) (Negative) Urine Ketones (Negative) Urine Blood (Negative) Urine Nitrite (Negative) Urine Bilirubin (Negative) Urine Urobilinogen (<2.0) mg/dL Ur Leukocyte Esterase (Negative) Urine RBC (0-5) /hpf Urine WBC (0-5) /hpf Ur Squamous Epith Cells (0-4) /hpf Hyaline Casts (0-2) /lpf Urine Mucus (None) /hpf Urine Opiates Screen (NotDetected) Ur Oxycodone Screen (NotDetected) Urine Methadone Screen (NotDetected) Ur Propoxyphene Screen (NotDetected) Ur Barbiturates Screen (NotDetected) U Tricyclic Antidepress (NotDetected) Ur Phencyclidine Scrn (NotDetected) Ur Amphetamines Screen (NotDetected) U Methamphetamines Scrn (NotDetected) U Benzodiazepines Scrn (NotDetected) Urine Cocaine Screen (NotDetected) U Marijuana (THC) Screen (NotDetected) 10/05/21 10/05/21 Range/Units 17:04 17:10 WBC (3.8-10.6) k/uL RBC (3.80-5.40) m/uL Hgb (11.4-16.0) gm/dL Hct (34.0-46.0) % MCV (80.0-100.0) fL MCH (25.0-35.0) pg MCHC (31.0-37.0) g/dL RDW (11.5-15.5) % Plt Count (150-450) k/uL MPV Neutrophils % % Lymphocytes % % Monocytes % % Eosinophils % % Basophils % % Neutrophils # (1.3-7.7) k/uL Lymphocytes # (1.0-4.8) k/uL Monocytes # (0-1.0) k/uL Eosinophils # (0-0.7) k/uL Basophils # (0-0.2) k/uL PT (9.0-12.0) sec INR (<1.2) APTT (22.0-30.0) sec Sodium (137-145) mmol/L Potassium (3.5-5.1) mmol/L Chloride (98-107) mmol/L Carbon Dioxide (22-30) mmol/L Anion Gap mmol/L BUN (7-17) mg/dL Creatinine (0.52-1.04) mg/dL Est GFR (CKD-EPI)AfAm (>60 ml/min/1.73 sqM) Est GFR (CKD-EPI)NonAf (>60 ml/min/1.73 sqM) Glucose (74-99) mg/dL Calcium (8.4-10.2) mg/dL Magnesium (1.6-2.3) mg/dL Total Bilirubin (0.2-1.3) mg/dL AST (14-36) U/L ALT (4-34) U/L Alkaline Phosphatase (38-126) U/L Troponin I <0.012 (0.000-0.034) ng/mL Total Protein (6.3-8.2) g/dL Albumin (3.5-5.0) g/dL TSH (0.465-4.680) mIU/L Urine Color Yellow Urine Appearance Clear (Clear) Urine pH 6.0 (5.0-8.0) Ur Specific [place] 1.027 (1.001-1.035) Urine Protein Trace H (Negative) Urine Glucose (UA) Negative (Negative) Urine Ketones Negative (Negative) Urine Blood Moderate H (Negative) Urine Nitrite Negative (Negative) Urine Bilirubin Negative (Negative) Urine Urobilinogen <2.0 (<2.0) mg/dL Ur Leukocyte Esterase Negative (Negative) Urine RBC 21 H (0-5) /hpf Urine WBC 1 (0-5) /hpf Ur Squamous Epith Cells <1 (0-4) /hpf Hyaline Casts 8 H (0-2) /lpf Urine Mucus Rare H (None) /hpf Urine Opiates Screen Not Detected (NotDetected) Ur Oxycodone Screen Not Detected (NotDetected) Urine Methadone Screen Not Detected (NotDetected) Ur Propoxyphene Screen Not Detected (NotDetected) Ur Barbiturates Screen Not Detected (NotDetected) U Tricyclic Antidepress Not Detected (NotDetected) Ur Phencyclidine Scrn Not Detected (NotDetected) Ur Amphetamines Screen Not Detected (NotDetected) U Methamphetamines Scrn Not Detected (NotDetected) U Benzodiazepines Scrn Not Detected (NotDetected) Urine Cocaine Screen Not Detected (NotDetected) U Marijuana (THC) Screen Not Detected (NotDetected) Disposition Clinical Impression: Palpitations Disposition: HOME SELF-CARE Condition: Good Instructions (If sedation given, give patient instructions): Heart Palpitations (ED) Is patient prescribed a controlled substance at d/c from ED?: No Referrals: Demarco Roy MD [Primary Care Provider] - 1-2 days
[2021-10-05 18:37] VITALS: BP 118/60; TEMP 98.8
[2021-10-05 18:50] VITALS: PULSE 73
== END 2021-10-05 18:43 | disposition home or self-care (01) ==
LOC: EC 15:46
DX: R00.2 Palpitations (principal); I48.91 Unspecified atrial fibrillation; K21.9 Gastro-esophageal reflux disease without esophagitis; Z79.899 Other long term (current) drug therapy
CPT/HCPCS: 36415; 71046; 80053; 80306; 81001; 83735; 84443; 84484; 85025; 85610; 85730; 93005; 99285

== ENCOUNTER → 2021-11-26 | Outpatient (CLI) | payer MEDICARE, OTHER ==
--- NOTE | 2021-11-26 12:14 | BD ---
EXAMINATION TYPE: Axial Bone Density DATE OF EXAM: 11/26/2021 COMPARISON: NONE CLINICAL HISTORY: 66 year old Female. ICD-10 CODE: C50.512 BREAST CA Height: 67 Weight: 176.5 FRAX RISK QUESTIONS: Alcohol (3 or more units per day): no Family History (Parent hip fracture): no Glucocorticoids (More than 3mos): no (Ex: prednisone, prednisolone, methylprednisolone, dexamethasone, and hydrocortisone). History of Fracture in Adulthood: yes Secondary Osteoporosis: 1. Type 1 Diabetes: no 2. Hyperthyroidism: no 3. Menopause before 45: no 4. Malnutrition: no 5. Chronic liver disease: no Rheumatoid Arthritis: no Current Tobacco Use: no RISK FACTORS HISTORY OF: Surgery to Spine/Hip(right/left)/Wrist (right/left): no Family History of Osteoporosis: yes Active: no Diet low in dairy products/other sources of calcium: yes Postmenopausal woman: yes Lost more than 2 inches in height since high school: no MEDICATIONS: Additional History: EXAM MEASUREMENTS: Bone mineral densitometry was performed using the [employer] System. Bone mineral density as measured about the Lumbar spine is: ----- L1-L4(G/cm2): 1.134 T Score Values are as follows: ----- L1: -1.5 ----- L2: -0.7 ----- L3: 1.1 ----- L4: -0.5 ----- L1-L4: -0.4 Bone mineral density baseline: Bone mineral density about the R hip (g/cm2): 0.825 Bone mineral density about the L hip (g/cm2): 0.885 T Score values are as follows: -----R Neck: -1.5 -----L Neck: -1.1 -----R Total: -1.6 -----L Total: -1.0 Bone mineral density : baseline FRAX%s: The graph provided illustrates a 15.5% chance for a major osteoporotic fx and a 2.0% chance f or the hips probability for fx in 10 years time. IMPRESSION: Osteopenia (T Score between -2.5 and -1). There is slightly increased risk of fracture and the patient may be considered for treatment. Re-Screen 2-5 years. NOTE: T-SCORE=SD OF THE YOUNG ADULT MEAN.
== END | disposition home or self-care (01) ==
LOC: RADMAMWWP 07:54
PROVIDERS: ATTEND Internal Medicine Hematology & Oncology
DX: Z12.31 Encounter for screening mammogram for malignant neoplasm of breast (principal); C50.512 Malignant neoplasm of lower-outer quadrant of left female breast
CPT/HCPCS: 77063; 77067; 77080

== ENCOUNTER → 2021-12-20 | Outpatient (CLI) | payer MEDICARE, OTHER ==
[2021-12-20 11:56] LABS: African American GFR (CKD) 87.8 (60.0-200.0); Anion Gap 9.3 mmol/L (10.00-18.00); Blood Urea Nitrogen 13.9 mg/dL (9.0-27.0); Carbon Dioxide 23.7 mmol/L (20.0-27.5); Non-African American GFR(CKD) 75.8 (60.0-200.0); Potassium 4.4 mmol/L (3.5-5.5)
[2021-12-20 14:28] LABS: HCT 42.6 % (37.2-46.3); HGB 13.9 g/dL (12.0-15.0); MCH 30.4 pg (27.0-32.0); MCHC 32.6 g/dL (32.0-37.0); MCV 93.2 fL (80.0-97.0); NRBC Per 100 WBC 0 /100 WBCS (0.0-0.0); Platelet Count 270 X 10*3/uL (140-440); RBC 4.57 X 10*6/uL (4.10-5.20); RDW 12.5 % (11.5-14.5); WBC 8.12 X 10*3/uL (4.50-10.00)
[2021-12-20 19:31] LABS: INR 0.98 (0.90-1.11); Prothrombin Time 10.8 sec (9.9-11.9)
== END | disposition home or self-care (01) ==
LOC: LABPAT 08:03
PROVIDERS: ATTEND Internal Medicine Clinical Cardiac Electrophysiology
DX: Z01.812 Encounter for preprocedural laboratory examination (principal); I47.1 Supraventricular tachycardia; I49.3 Ventricular premature depolarization
CPT/HCPCS: 80051; 82565; 84520; 85027; 85610

== ENCOUNTER 2022-02-03 10:13 | Day surgery (SDC) | payer MEDICARE, OTHER ==
[2022-01-27 12:05] VITALS: BMI 26.3
[~2022-02-03 10:13] MED LIST changes: -DEXAMETHASONE SOD PHOSPHATE 10 MG/ML 1 ML VIAL IV ONE; -HYDROmorphone 1 MG/ML 1 ML SYRINGE IVP PRN; -LACTATED RINGERS 1,000 ML IV SCH; -MIDAZOLAM 2 MG/2 ML VIAL IV PRN; -ONDANSETRON 4 MG/2 ML VIAL IVP ONE; +SODIUM CHLORIDE 0.9% 1,000 ML IV SCH
[2022-02-03 11:15] VITALS: RESP 16; TEMP 97.9
[2022-02-03] MEDS ORDERED: LIDOCAINE 1% INJ 10MG/ML (30 ML VIAL-PF) SQ ONE (12:49)
--- NOTE | 2022-02-03 13:04 | P.EPPROC ---
- EP Procedure Note Electrophysiology Procedure Note: Loop monitor implant Primary physicians: [employer] Supervisor: Dr. So Indication: Recurrent palpitations, no nonsustained atrial tachycardia Patient was brought to the EP lab in a fasting state. Written informed consent was obtained prior to the procedure. The left pectoral area was prepped and draped per protocol. Intravenous antibiotic was administered preoperatively. A subcutaneous Loop monitor was implanted successfully and the wound was closed per protocol. The device was programmed to detect significant daiana- arrhythmic and tachy-arrhythmic events, per protocol. Device and programming details: Atrial fibrillation detection protocol Patient underwent EP procedure under conscious sedation/moderate sedation, monitoring of the level of consciousness and physiologic parameters including but not limited to vital signs and oxygenation. Patient tolerated the procedure well without any acute complications. Start time: 1249 Stop time: 1250
[2022-02-03 17:29] VITALS: BP 142/61; PULSE 74
== END 2022-02-03 13:57 | disposition home or self-care (01) ==
LOC: CATHEP 10:13
PROVIDERS: ATTEND Internal Medicine Clinical Cardiac Electrophysiology
DX: I48.91 Unspecified atrial fibrillation (principal); I47.1 Supraventricular tachycardia; I44.1 Atrioventricular block, second degree; I49.3 Ventricular premature depolarization; I34.1 Nonrheumatic mitral (valve) prolapse
CPT/HCPCS: 33285; C1764; J0690; J2001

== ENCOUNTER 2022-07-27 08:11 | Day surgery (SDC) | payer MEDICARE, OTHER ==
[2022-07-22 15:57] VITALS: BMI 27.3
[~2022-07-27 08:11] MED LIST changes: +LACTATED RINGERS 1,000 ML IV SCH; +LIDOCAINE 1% (10MG/ML) FOR IV START INTRADERMA PRN; +MOXIFLOXACIN HCL 0.5% DROPS 3 ML BTL OP PRN; +ONDANSETRON 4 MG/2 ML VIAL IVP PRN; -SODIUM CHLORIDE 0.9% 1,000 ML IV SCH; +TETRACAINE 0.5% OPHTH (PF) DROPS 4 ML BTL OP PRN; +TIMOLOL 0.5% OPHTH DROPS 5 ML BTL OP PRN
[2022-07-27] MEDS: CYCLOPENTOLATE 1% OPHTH SOLN 2 ML BTL OP PRN ×3 (08:33→08:41)
[2022-07-27] MEDS: PHENYLEPHRINE 2.5% OPHTH DRP 2ML OP PRN ×3 (08:36→08:49)
[2022-07-27 08:43] VITALS: TEMP 97.9
[2022-07-27] MEDS ORDERED: LACTATED RINGERS 1,000 ML IV ONE (09:43)
[2022-07-27] MEDS ORDERED: MIDAZOLAM 2 MG/2 ML VIAL ONE (09:43)
[2022-07-27] MEDS ORDERED: fentaNYL (PF) 50 MCG/ML 2 ML AMP ONE (09:43)
[2022-07-27] MEDS ORDERED: EPINEPHrine (PF) 0.3 ML in BALANCED SALT IRRIG SOLN COMB2 500 ML IRRIGATION ONE (09:50)
[2022-07-27] MEDS ORDERED: BALANCED SALT IRRIG SOLN COMB2 15 ML IRRIG.SOLN IRRIGATION ONE (09:51)
[2022-07-27] MEDS ORDERED: DUOVISC KIT (GREEN BOX) INTRAOCULA ONE (09:51)
[2022-07-27] MEDS ORDERED: LIDOCAINE 1% (PF) 10MG/ML VIAL MISCELLANE ONE (09:51)
--- NOTE | 2022-07-27 10:11 | P.OP ---
Date of Procedure: 07/27/22 Preoperative Diagnosis: NS Postoperative Diagnosis: same Procedure(s) Performed: PIOL, OS Implants: MX60E 19.00 Anesthesia: MAC Surgeon: eNmesio Duenas Pathology: none sent Condition: stable Disposition: same day Indications for Procedure: blurry vision Operative Findings: no complications
[2022-07-27 10:15] VITALS: RESP 16
[2022-07-27 10:29] VITALS: BP 125/68; PULSE 72
--- NOTE | 2022-07-27 19:42 | OP ---
OPERATIVE REPORT DATE OF SERVICE : 07/27/2022 PREOPERATIVE DIAGNOSIS: Nuclear sclerosis, left eye. POSTOPERATIVE DIAGNOSIS: Nuclear sclerosis, left eye. OPERATION: Phacoemulsification of cataract and interocular lens implant of the left eye. ESTIMATED BLOOD LOSS: Zero. SPECIMEN TAKEN: None. NARRATIVE: After obtaining the appropriate consent, the patient was brought to the operating room where the patient was placed under cardiac monitoring and prepped and draped in the usual sterile manner. At the 5 o'clock position, a 15-degree super sharp blade was used to create a paracentesis followed by instillation of 1% Xylocaine MPF 50:50 mix with BSS into the anterior chamber. This was followed by DuoVisc viscoelastic to stabilize the anterior chamber. At the 3 o'clock position a self-sealing corneal flap incision was created using 2.8 mm emma keratome. A cystotome was used to initiate a continuous tear capsulorrhexis which was completed with the Utrata forceps. A Binkhorst cannula was used to hydrodissect the lens nucleus followed by hydrodelineation. Phacoemulsification of the lens was performed utilizing phaco chop in 20.98 seconds at 17% power. The remaining cortical material was removed using the irrigation aspiration mode followed by additional 1% Xylocaine MPF into the anterior chamber followed by viscoelastic to stabilize the capsular bag. A [employer]ch [employer] MX60E 19.0 diopters posterior chamber lens was placed into the capsular bag without difficulty. The remaining viscoelastic material was removed from the anterior chamber with the irrigation/aspiration. Balanced salt solution was used to normalize the intraocular pressure. The incision was checked for watertight integrity. The patient then received 2 drops of 0.5% timolol followed by 2 drops Vigamox, was lightly patched and shielded in the usual manner. There were no complications from the procedure. The patient tolerated the procedure well and was returned to recovery in good condition. MMODL / IJN: [id number] /
== END 2022-07-27 10:58 | disposition home or self-care (01) ==
LOC: OR 08:11
PROVIDERS: ATTEND Ophthalmology
DX: H25.12 Age-related nuclear cataract, left eye (principal); K21.9 Gastro-esophageal reflux disease without esophagitis; Z98.890 Other specified postprocedural states
CPT/HCPCS: 66984; C1780; J2250; J0171; J3010; J2001

== ENCOUNTER 2022-11-03 14:15 | Emergency (ER) | payer MEDICARE, OTHER ==
--- NOTE | 2022-11-03 15:06 | ED ---
General Adult HPI - General Source: patient <Juan Manuel Leonard - Last Filed: 11/03/22 15:02> <Carter Koehler - Last Filed: 11/03/22 17:46> - General Stated complaint: Fall Time Seen by Provider: 11/03/22 15:02 - History of Present Illness Initial comments: Went to urgent care in [place] and sent to ER. States she fell about 6 weeks ago outside. Was outside and tripped over a tree branch. Fell on her rear end and hit back of her head on the ground. [place] a pop in her neck. Since has been feeling weird. Lately having pain down right arm and right leg. States has had pain in same arm since Covid shot August 2020. No blood thinners. Did not see anyone at that time. Feeling tired since fall. Hand Spray Operator told her she might have a concussion. (Juan Manuel Leonard) Dictation was produced using [employer] dictation software. please excuse any grammatical, word or spelling errors. Chief Complaint: 67-year-old female with neck pain History of Present Illness: Patient is 67-year-old female she presents to the emergency room for neck pain 6 weeks ago she fell after tripping over a tree branch. At that time she did not lose any consciousness. She states she had back. She has not sought any medical attention after that injury. States that she's been having pain in the neck that radiates down the right upper extremity. Patient had a optometry appointment early this week she told that her optometry exam was unremarkable. She did mention symptoms to the parts washer and was told that her symptoms are likely occipital in nature. Patient has no headache. The ROS documented in this emergency department record has been reviewed and confirmed by me. Those systems with pertinent positive or negative responses have been documented in the HPI. All other systems are other negative and/or noncontributory. (Carter Koehler) - Related Data Home Medications Medication Instructions Recorded Confirmed Dicyclomine [Bentyl] 10 mg PO TID PRN 04/23/19 07/22/22 Cholecalciferol [Vitamin D3 (25 25 mcg PO HS 10/05/21 07/22/22 Mcg = 1000 Iu)] Famotidine [Pepcid] 20 mg PO HS 10/05/21 07/22/22 atenoloL [Tenormin] 50 mg PO HS 10/05/21 07/22/22 Allergies Allergy/AdvReac Type Severity Reaction Status Date / Time No Known Allergies Allergy Verified 11/03/22 15:09 Review of Systems ROS Other: All systems not noted in ROS Statement are negative. <Juan Manuel Leonard - Last Filed: 11/03/22 15:02> ROS Other: All systems not noted in ROS Statement are negative. <Carter Koehler - Last Filed: 11/03/22 17:46> ROS Statement: Those systems with pertinent positive or pertinent negative responses have been documented in the HPI. Past Medical History Past Medical History: Atrial Fibrillation, Cancer, GERD/Reflux Additional Past Medical History / Comment(s): hx. breast cancer History of Any Multi-Drug Resistant Organisms: None Reported Past Surgical History: Ablation, Cholecystectomy, Orthopedic Surgery Additional Past Surgical History / Comment(s): right knee surg., colonoscopy, cataract removal with lens implant, CARDIAC ABLATION Past Anesthesia/Blood Transfusion Reactions: No Reported Reaction Smoking Status: Never smoker - Past Family History Mother Family Medical History: Cancer Father Family Medical History: Cancer <Juan Manuel Leonard - Last Filed: 11/03/22 15:02> General Exam <Carter Koehler - Last Filed: 11/03/22 17:46> - General Exam Comments Initial Comments: PHYSICAL EXAM: General Impression: Alert and oriented x3, not in acute distress HEENT: Normocephalic atraumatic, extra-ocular movements intact, pupils equal and reactive to light bilaterally, mucous membranes moist. Cardiovascular: Heart regular rate and rhythm Chest: Able to complete full sentences, no retractions, no tachypnea Abdomen: abdomen soft, non-tender, non-distended, no organomegaly Musculoskeletal: Pulses present and equal in all extremities, no peripheral edema Motor: no focal deficits noted Neurological: CN II-XII grossly intact, no focal motor or sensory deficits noted Skin: Intact with no visualized rashes Psych: Normal affect and mood (Carter Koehler) Course Vital Signs 11/03/22 15:02 Temperature 98.8 F Pulse Rate 77 Respiratory 18 Rate Blood Pressure 135/63 O2 Sat by Pulse 98 Oximetry Medical Decision Making <Juan Manuel Leonard - Last Filed: 11/03/22 15:02> <ClarkCarter campbell Venessa - Last Filed: 11/03/22 17:46> - Medical Decision Making Visual Physical Exam Vital signs reviewed General: Well-appearing, nontoxic, no acute distress. Head: Normocephalic, atraumatic Eyes: PERRLA, EOMI ENT: Airway patent Chest: Nonlabored breathing Skin: No visual rash, normal skin tone Neuro: Alert and oriented 3 Musculoskeletal: No gross abnormalities I performed the quick note portion of this chart. Juan Manuel ROBBINS (Juan Manuel Leonard) Was pt. sent in by a medical professional or institution ([facility], HOSE HANDLER, urgent care, hospital, or detention...) When possible be specific @ -No Did you speak to anyone other than the patient for history (EMS, parent, family, police, friend...)? What history was obtained from this source @ -No Did you review nursing and triage notes (agree or disagree)? Why? @ -I reviewed and agree with nursing and triage notes Were old charts reviewed (outside hosp., previous admission, EMS record, old EKG, old radiological studies, urgent care reports/EKG's, detention records)? Report findings @ -No old charts were reviewed Differential Diagnosis (chest pain, altered mental status, abdominal pain women, abdominal pain men, vaginal bleeding, musculoskeletal, weakness, fever, dyspnea, syncope, headache, dizziness, GI bleed, back pain, seizure, CVA, palpatations, mental health)? @ -not applicable EKG interpreted by me (3pts min.). @ -None done X-rays interpreted by me (1pt min.). @ -Computed tomography scan of the head and C-spine shows no acute processes. There is mild spondylitic changes of the cervical spine CT interpreted by me (1pt min.). @ -None done U/S interpreted by me (1pt. min.). @ -None done What testing was considered but not performed or refused? (CT, X-rays, U/S, labs)? Why? @ -None What meds were considered but not given or refused? Why? @ -None Did you discuss the management of the patient with other professionals (professionals i.e. , PA, HOSE HANDLER, lab, RT, psych nurse, social media editor, peoplesoft hcm developer, teacher, chief wellness officer, machine adjuster leader case trim)? Give summary @ -No Was smoking cessation discussed for >3mins.? @ -No Was critical care preformed (if so, how long)? @ -No Were there social determinants of health that impacted care today? How? (Homelessness, low income, unemployed, alcoholism, drug addiction, transportation, low edu. Level, literacy, decrease access to med. care, detention, rehab)? @ -No Was there de-escalation of care discussed even if they declined (Discuss DNR or withdrawal of care, Hospice)? DNR status @ -No What co-morbidities impacted this encounter? (DM, HTN, Smoking, COPD, CAD, Cancer, CVA, ARF, Chemo, Hep., AIDS, mental health diagnosis, sleep apnea, morbid obesity)? @ -None Was patient admitted / discharged? Hospital course, mention meds given and route, prescriptions, significant lab abnormalities, going to OR and other pertinent info. @ -7-year-old female with neck pain after having fallen hurting her neck 6 weeks ago. Vital signs stable. Physical examination is benign. Patient has no neuro deficits. CT imaging is unremarkable. Patient discharged told to follow-up with primary care doctor. Undiagnosed new problem with uncertain prognosis? @ -No Drug Therapy requiring intensive monitoring for toxicity (Heparin, Nitro, Insulin, Cardizem)? @ -No Were any procedures done? @ -No Diagnosis/symptom? Acute, or Chronic, or Acute on Chronic? Uncomplicated (without systemic symptoms) or Complicated (systemic symptoms)? @ -1. Neck pain Side effects of treatment? @ -No Exacerbation, Progression, or Severe Exacerbation? @ -No Poses a threat to life or bodily function? How? (Chest pain, [place], [place], pneumonia, PE, COPD, DKA, ARF, appy, cholecystitis, CVA, Diverticulitis, Homicidal, Suicidal, threat to staff... and all critical care pts) @ -No (Carter Koehler) Disposition <Juan Manuel Leonard - Last Filed: 11/03/22 15:02> Is patient prescribed a controlled substance at d/c from ED?: No Time of Disposition: 17:46 <Carter Koehler - Last Filed: 11/03/22 17:46> Clinical Impression: Neck pain Disposition: HOME SELF-CARE Condition: Good Instructions (If sedation given, give patient instructions): Cervical Sprain (ED) Referrals: Demarco Roy MD [Primary Care Provider] - 1-2 days
[2022-11-03 15:09] VITALS: RESP 18
--- NOTE | 2022-11-03 17:13 | CT ---
EXAMINATION TYPE: CT brain [place] wo con DATE OF EXAM: 11/03/2022 COMPARISON: General Manager error, unable to retrieve priors for comparison. HISTORY: 67-year-old female Neck pain, recent fall. Not able to remove dental work. CT DLP: 1548.6 mGycm Automated exposure control for dose reduction was used. Technique: Examination of the head was done in axial plane without intravenous contrast. Coronal and sagittal reconstructions performed. CT of the cervical spine was obtained in axial plane without intravenous injection of contrast mater ial. Coronal and sagittal reformatted images were obtained from the axial views for evaluation of f ractures, spinal alignment and canal. FINDINGS: Head: There is no evidence of acute intracranial hemorrhage, acute ischemic changes, mass, mass-effect, or extra-axial fluid collection. There is no effacement of cerebral sulci or basal subarachnoid cister ns. There is no hydrocephalus. There is no midline shift. Gomez-white matter distinction is preserv ed. Benign hyperostosis frontalis interna. Mild age-related volume loss along the superior cerebral conve xities. Paranasal sinuses and mastoid air cells are well pneumatized. The globes are intact. Cervical spine: Mild ectasia upper descending thoracic aorta at 3.2 cm. Normal variant posterior fusion defect of C1 arch. No craniocervical junction abnormality, predental space widening, or prevertebral soft tissue swelling. Degenerative change of the C1 dens articulation . Scattered mild spondylotic change throughout. No evident canal compromise by CT. No acute fracture seen of the cervical spine. There is mild neuroforaminal narrowing on both sides at C3-C4. Alignment is maintained. Sagittal and coronal reformatted images confirm above findings. COMBINED IMPRESSION: 1. No acute intracranial abnormality seen. 2. No acute fracture or malalignment of the cervical spine. Mild spondylotic change.
[2022-11-03 18:12] VITALS: BP 130/76; PULSE 81; TEMP 98.1
== END 2022-11-03 18:27 | disposition home or self-care (01) ==
LOC: EC 14:15
DX: M54.2 Cervicalgia (principal); K21.9 Gastro-esophageal reflux disease without esophagitis; Z79.899 Other long term (current) drug therapy; W01.0XXA Fall on same level from slipping, tripping and stumbling without subsequent striking against object, initial encounter
CPT/HCPCS: 70450; 72125; 99284

== ENCOUNTER → 2022-11-28 | Outpatient (CLI) | payer MEDICARE, OTHER ==
--- NOTE | 2022-11-29 10:44 | MM ---
Reason for Exam: Screening (asymptomatic). Last screening mammogram was performed 12 month(s) ago. Patient History: Menarche at age 11. Postmenopausal. Breast cancer, left, age 51. Previous chest radiation therapy at age 52. Hormonal Contraceptives, from age 15 until age 48. 2009, Radiation Therapy on the left side. 2009, Chemotherapy. Maternal aunt had breast cancer, age 53. Mother had breast cancer, age 53. Prior Study Comparison: 11/25/2020 Bilateral MG screening mammo w CAD - 2, [facility]. 11/25/2020 Bilateral MG screening mammo w/o cad, [facility]. 11/26/2021 Bilateral MG 3D screening mammo w/cad, [facility]. Tissue Density: The breast tissue is heterogeneously dense. This may lower the sensitivity of mammography. Findings: Analyzed By CAD. Right: Focal asymmetry right breast 12.4 cm from the nipple in the posterior depth upper outer quadrant. Left breast there is at least diffuse cysts visualized 4 and 5 cm from the nipple measuring up to 9 mm. Slice 19/75 and MLO view. Overall Assessment: Incomplete: need additional imaging evaluation, BI-RAD 0 Management: Diagnostic Mammogram of both breasts. Diagnostic Breast Ultrasound of the left breast. [facility] will attempt to contact patient to return for supplemental views and ultrasound if indicated. Patient should continue monthly self-breast exams. A clinical breast exam by your physician is recommended on an annual basis. This exam should not preclude additional follow-up of suspicious palpable abnormalities. Note on Rhonda scores and lifetime risk: 1. A Rhonda score greater than 3% is considered moderate risk. If this is the case, consider specialist referral to assess eligibility for a risk reducing agent. 2. If overall lifetime risk for the development of breast cancer is 20% or higher, the patient may qualify for future screening with alternating mammogram and breast MRI. Electronically signed and approved by: Nikunj Grant DO
== END | disposition home or self-care (01) ==
LOC: RADMAMWWP 08:12
PROVIDERS: ATTEND Internal Medicine Hematology & Oncology
DX: Z12.31 Encounter for screening mammogram for malignant neoplasm of breast (principal); Z78.0 Asymptomatic menopausal state; Z80.3 Family history of malignant neoplasm of breast; Z85.3 Personal history of malignant neoplasm of breast
CPT/HCPCS: 77063; 77067

== ENCOUNTER → 2022-12-01 | Outpatient (CLI) | payer MEDICARE, OTHER ==
--- NOTE | 2022-12-01 10:11 | MM ---
Reason for Exam: Follow-up at short interval from prior study. Last screening mammogram was performed less than 1 month ago. Patient History: Menarche at age 11. Postmenopausal. Breast cancer, left, age 51. Previous chest radiation therapy at age 52. Hormonal Contraceptives, from age 15 until age 48. 2009, Radiation Therapy on the left side. 2008, Chemotherapy. Maternal aunt had breast cancer, age 53. Mother had breast cancer, age 53. Prior Study Comparison: 11/26/2021 Bilateral MG 3D screening mammo w/cad, [facility]. 11/28/2022 Bilateral MG 3D screening mammo w/cad, [facility]. Tissue Density: The breast tissue is heterogeneously dense. This may lower the sensitivity of mammography. Findings: Analyzed By CAD. Benign calcifications within both breasts. No suspicious group of calcifications within either breast. Posttreatment changes of the left breast redemonstrated. Previously questioned asymmetries on the MLO view in the left breast do not persist with compression. Persistent spiculated 2 cm mass within the upper outer right breast at posterior depth. Benign calcifications within both breasts. No suspicious group of calcifications within either breast. Posttreatment changes of the left breast redemonstrated. Previously questioned asymmetries on the MLO view in the left breast do not persist with compression. Persistent spiculated 2 cm mass within the upper outer right breast at posterior depth. Chronic nodularity within the right breast. Overall Assessment: Incomplete: need additional imaging evaluation, BI-RAD 0 Management: Diagnostic Breast Ultrasound of the right breast. A clinical breast exam by your physician is recommended on an annual basis and results should be correlated with mammographic findings. This exam should not preclude additional follow-up of suspicious palpable abnormalities. Results were given to the patient verbally at the time of exam. Electronically signed and approved by: Marvin Wheat D.O.
--- NOTE | 2022-12-01 10:47 | USB ---
Reason for Exam: Additional evaluation requested from abnormal screening. Patient History: Menarche at age 11. Postmenopausal. Breast cancer, left, age 51. Previous chest radiation therapy at age 52. Hormonal Contraceptives, from age 15 until age 48. 2008, Radiation Therapy on the left side. 2008, Chemotherapy. Maternal aunt had breast cancer, age 53. Mother had breast cancer, age 53. Prior Study Comparison: 11/25/2020 Bilateral MG screening mammo w/o cad, [facility]. 11/26/2021 Bilateral MG 3D screening mammo w/cad, [facility]. 11/28/2022 Bilateral MG 3D screening mammo w/cad, [facility]. Findings: The upper outer quadrant of the right breast, the axilla of the right breast and the retroareolar of the right breast were scanned. Targeted ultrasound of the right breast from 9-12 o'clock was performed with additional evaluation of the nipple and axilla. Spiculated hypoechoic mass within the right breast at 10:00 10 cm from the nipple measuring 1.1 x 1.4 x 1.5 cm. This demonstrates antiparallel orientation with posterior acoustic shadowing. No internal color flow identified. Benign right axillary lymph nodes identified without thickened cortex. Overall Assessment: Highly suggestive of malignancy, BI-RAD 5 Management: Ultrasound Core Biopsy of the right breast. A clinical breast exam by your physician is recommended on an annual basis and results should be correlated with mammographic findings. This exam should not preclude additional follow-up of suspicious palpable abnormalities. Results were given to the patient verbally at the time of exam. Electronically signed and approved by: Marvin Wheat D.O.
== END | disposition home or self-care (01) ==
LOC: RADMAMWWP 09:38
PROVIDERS: ATTEND Internal Medicine Hematology & Oncology
DX: R92.8 Other abnormal and inconclusive findings on diagnostic imaging of breast (principal); Z78.0 Asymptomatic menopausal state; Z80.3 Family history of malignant neoplasm of breast; Z92.3 Personal history of irradiation; Z85.3 Personal history of malignant neoplasm of breast
CPT/HCPCS: 77066; 76642; G0279; 77062

== ENCOUNTER → 2022-12-08 | Day surgery (SDC) | payer MEDICARE, OTHER ==
--- NOTE | 2022-12-16 11:11 | MM ---
Reason for Exam: Post Procedure Mammogram. Last screening mammogram was performed less than 1 month ago. Patient History: Menarche at age 11. Postmenopausal. Breast cancer, left, age 51. Previous chest radiation therapy at age 52. Hormonal Contraceptives, from age 15 until age 48. 2009, Radiation Therapy on the left side. 2009, Chemotherapy. Maternal aunt had breast cancer, age 53. Mother had breast cancer, age 53. Prior Study Comparison: 11/26/2021 Bilateral MG 3D screening mammo w/cad, [facility]. 11/28/2022 Bilateral MG 3D screening mammo w/cad, [facility]. 12/01/2022 Bilateral MG 3D work up w/cad [facility], [facility]. Tissue Density: Right: The breast tissue is heterogeneously dense. This may lower the sensitivity of mammography. Pathology Description: Location: 10 o'clock. Marker Left Behind. Needle Type: Mammotome Cores: 6 Gauge: 13 The procedure of ultrasound guided core biopsy was explained to the patient. Benefits, alternatives, and risks were discussed. An informed consent was then obtained. The suspicious mass in the right breast posterior depth is identified and targeted for biopsy. The patient was placed in supine positioning for imaging and for the procedure. The overlying skin was prepped and draped in usual sterile fashion. Lidocaine was used as anesthetic into the skin and subcutaneous tissue up to area of concern in the right breast. Under ultrasound guidance, a 13-gauge vacuum-assisted mammotome Elite biopsy gun was used to obtain 6 core samples. Following this, a butterfly clip was left in lesion. The patient tolerated the procedure well without any immediate complication. The patient was kept in the radiology department for short stay after the procedure and then discharged home in stable condition. Postprocedure mammogram: The patient was transferred to mammography for physician ordered post procedure mammogram for clip placement verification. Post procedure mammogram shows clip at the site of suspicious mammographic mass. IMPRESSION: Successful, uncomplicated ultrasound guided core biopsy of a BI-RADS 5 mass posterior upper outer quadrant right breast. Patient with history of remote left breast cancer. Full pathology results to follow. Pathology Results: Result: Malignant, Invasive lobular carcinoma. RIGHT BREAST, 10:00 POSITION, ULTRASOUND GUIDED CORE BIOPSY: Invasive lobular carcinoma, Grade 2, with focal lobular carcinoma in situ (LCIS). See Surgical Pathology Cancer Case Summary and comment. Overall Assessment: Malignant Assessment: MG diagnostic mammo RT wo CAD - Right: Known biopsy proven malignancy, BI-RAD 6. Management: Surgical Consultation of the right breast. Electronically signed and approved by: Henrik Bianchi M.D. Radiologist
== END ==
LOC: RADUSWWP 12:43
PROVIDERS: ATTEND Internal Medicine Hematology & Oncology
DX: D05.01 Lobular carcinoma in situ of right breast (principal)
CPT/HCPCS: 88305; 88342; 88341; 77065; 19083; A4648

== ENCOUNTER → 2022-12-21 | Outpatient (CLI) | payer MEDICARE, OTHER ==
--- NOTE | 2022-12-21 11:04 | P.GSHP ---
History of Present Illness H&P Date: 12/21/22 Chief Complaint: Biopsy-proven right breast invasive lobular carcinoma Greer is a 67-year-old white female [place] [address]. This led to additional bilateral diagnostic mammograms [place] [address]. The left breast did not have anything which required further evaluation however on the right breast a 1.4 x 1.5 cm lesion was identified at 10:00 10 cm from the nipple which was highly suggestive of malignancy. A core biopsy was performed of this site on 9723 this revealed invasive lobular carcinoma grade 2 it is ER/[place] positive and HER-2 negative. She was seen in consultation by Dr. Manning recommended surgical intervention without any prior neoadjuvant therapy. Of importance is the fact that she underwent a left lumpectomy in 2008 she underwent chemotherapy, and radiation therapy. She is uncertain of the stage. She was on Femora 10 years. She has been off it for about 5 years. She had blood drawn for genetic testing yesterday. The patient was unable to feel the lump in her right breast recently. This was found on screening mammogram. 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 So right knee pain IBS Social History: nicotine: none alcohol: occasional drugs: none - Constitutional Constitutional: Reports sweats - EENT Eyes: bilateral as per HPI Ears: bilateral: tinnitus, deny: decreased hearing Ears, nose, mouth and throat: Denies headache, Denies sore throat - Breasts Breasts: bilateral: as per HPI - Cardiovascular Cardiovascular: Reports as per HPI - Respiratory Respiratory: Reports cough - Gastrointestinal Gastrointestinal: Reports as per HPI - Genitourinary (Female) Genitourinary: Reports as per HPI - Menstruation Menstruation: Reports postmenopausal - Musculoskeletal Comment: right knee pain, bursitis - Integumentary Comment: none - Neurological Neurological: Denies numbness, Denies weakness - Psychiatric Psychiatric: Reports anxiety - Endocrine Endocrine: Reports fatigue - Hematologic/Lymphatic Comment: none - Allergic/Immunologic Allergic/Immunologic: Reports seasonal allergies Past Medical History Past Medical History: Cancer, GERD/Reflux Additional Past Medical History / Comment(s): hx. leftbreast cancer History of Any Multi-Drug Resistant Organisms: None Reported Past Surgical History: Ablation, Cholecystectomy, Orthopedic Surgery Additional Past Surgical History / Comment(s): right knee surg., colonoscopy, cataract removal with lens implant, CARDIAC ABLATION. Loop monitor placement Past Anesthesia/Blood Transfusion Reactions: No Reported Reaction Past Psychological History: No Psychological Hx Reported Smoking Status: Never smoker Past Alcohol Use History: None Reported Past Drug Use History: None Reported - Past Family History Mother Family Medical History: Cancer Father Family Medical History: Cancer Medications and Allergies Home Medications Medication Instructions Recorded Confirmed Type Dicyclomine [Bentyl] 10 mg PO TID PRN 04/23/19 12/02/22 History Cholecalciferol [Vitamin D3 (25 25 mcg PO HS 10/05/21 12/02/22 History Mcg = 1000 Iu)] Famotidine [Pepcid] 20 mg PO HS 10/05/21 12/02/22 History atenoloL [Tenormin] 50 mg PO HS 10/05/21 12/02/22 History Allergies Allergy/AdvReac Type Severity Reaction Status Date / Time No Known Allergies Allergy Verified 12/02/22 09:52 Surgical - Exam - General moderate distress - Eyes normal ocular movement - ENT no hearing loss - Neck trachea midline - Respiratory normal respiratory effort - Cardiovascular Rhythm: regular Heart Sounds: normal: S1, S2 - Abdomen Abdomen: soft, non tender, no guarding, no rigid, no rebound - Integumentary normal turgor - Neurologic no disoriented, no combative - Musculoskeletal normal gait, normal posture - Psychiatric oriented to time, oriented to person, oriented to place, speech is normal, memory intact Breast Exam: BRA: 40C inspection: Prior left breast lumpectomy radiation and postoperative changes, right breast grade 2/3 ptosis Palpation: Right breast: Multi-positional exam fullness 10 o'clock position upper outer quadrant no other dominant masses or notches of concern Right axilla: No adenopathy of concern Left breast: Multi-positional exam post lumpectomy and radiation changes Left axilla: No adenopathy of concern Results Mammogram and ultrasound reviewed Case discussed with Dr. Manning from medical oncology Assessment and Plan Assessment: Impression: Stage I invasive lobular carcinoma right breast Patient status post left breast lumpectomy in 2008 for invasive carcinoma Plan: Genetic testing Presentation of case at tumor board Consider breast MRI Probable needle localization lumpectomy with sentinel node biopsy Cc: Dr. Roy, Dr. Dino Manning
[2022-12-21 13:15] VITALS: BP 122/69; PULSE 69; RESP 18; TEMP 98
== END ==
LOC: WWCWWP 10:00
PROVIDERS: ATTEND Surgery
DX: C50.911 Malignant neoplasm of unspecified site of right female breast (principal); K21.9 Gastro-esophageal reflux disease without esophagitis; K58.9 Irritable bowel syndrome, unspecified; Z17.0 Estrogen receptor positive status [ER+]; Z90.11 Acquired absence of right breast and nipple; Z80.3 Family history of malignant neoplasm of breast; Z85.3 Personal history of malignant neoplasm of breast

== ENCOUNTER → 2023-01-25 | Outpatient (CLI) | payer MEDICARE, OTHER ==
[2023-01-25 09:02] VITALS: BP 118/76; PULSE 77; RESP 17; TEMP 98.1
--- NOTE | 2023-01-25 09:26 | P.PN ---
Subjective Progress Note Date: 01/25/23 Chief Complaint: Biopsy-proven right breast invasive lobular carcinoma Greer is a 67-year-old white female [place] [address]. This led to additional bilateral diagnostic mammograms [place] [address]. The left breast did not have anything which required further evaluation however on the right breast a 1.4 x 1.5 cm lesion was identified at 10:00 10 cm from the nipple which was highly suggestive of malignancy. A core biopsy was performed of this site on 9723 this revealed invasive lobular carcinoma grade 2 it is ER/[place] positive and HER-2 negative. She was seen in consultation by Dr. Manning recommended surgical intervention without any prior neoadjuvant therapy. Of importance is the fact that she underwent a left lumpectomy in 2008 she underwent chemotherapy, and radiation therapy. She is uncertain of the stage. She was on Femora 10 years. She has been off it for about 5 years. She had blood drawn for genetic testing, this revealed a oriented unknown significance. The patient was unable to feel the lump in her right breast recently. This was found on screening mammogram. [place] [address], this revealed a variant of unknown significance The patient opted not to go to the [place] area for an MRI, I have again reviewed her mammogram with Dr. Ash from radiology and he has recommended a right breast complete ultrasound She recently heard her right foot She had a stress test last week and results are pending case presented at tumor board on 12-27-22 CAffiene: 3 pops/day nicotine: none hormones: BCP: used them for 30 years, hormones, none chocolate: occasional Family History: Mother: of breast cancer at the age of 53, stage 4 at diagnosis maternal aunt: at 53 of breast cancer father: stomach and colon cancer pateranl grandfather: colon cancer Hormonal History: menarche: 10 A1 menoapuse: 48 Surgical History: right knee left breast lumpectomy and ANB 2009 gallbaldder polyp in cervical area Several colonoscopies bilateral cataract surgery 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 right knee pain IBS Social History: nicotine: none alcohol: occasional drugs: none - Constitutional Constitutional: Reports sweats - EENT Eyes: bilateral as per HPI Ears: bilateral: tinnitus, deny: decreased hearing Ears, nose, mouth and throat: Denies headache, Denies sore throat - Breasts Breasts: bilateral: as per HPI - Cardiovascular Cardiovascular: Reports as per HPI - Respiratory Respiratory: Reports cough - Gastrointestinal Gastrointestinal: Reports as per HPI - Genitourinary (Female) Genitourinary: Reports as per HPI - Menstruation Menstruation: Reports postmenopausal - Musculoskeletal Comment: right knee pain, bursitis - Integumentary Comment: none - Neurological Neurological: Denies numbness, Denies weakness - Psychiatric Psychiatric: Reports anxiety - Endocrine Endocrine: Reports fatigue - Hematologic/Lymphatic Comment: none - Allergic/Immunologic Allergic/Immunologic: Reports seasonal allergies Past Medical History Past Medical History: Cancer, GERD/Reflux Additional Past Medical History / Comment(s): hx. leftbreast cancer History of Any Multi-Drug Resistant Organisms: None Reported Past Surgical History: Ablation, Cholecystectomy, Orthopedic Surgery Additional Past Surgical History / Comment(s): right knee surg., colonoscopy, cataract removal with lens implant, CARDIAC ABLATION. Loop monitor placement Past Anesthesia/Blood Transfusion Reactions: No Reported Reaction Past Psychological History: No Psychological Hx Reported Smoking Status: Never smoker Past Alcohol Use History: None Reported Past Drug Use History: None Reported - Past Family History Mother Family Medical History: Cancer Father Family Medical History: Cancer Medications and Allergies Home Medications Medication Instructions Recorded Confirmed Type Dicyclomine [Bentyl] 10 mg PO TID PRN 04/23/19 12/02/22 History Cholecalciferol [Vitamin D3 (25 25 mcg PO HS 10/05/21 12/02/22 History Mcg = 1000 Iu)] Famotidine [Pepcid] 20 mg PO HS 10/05/21 12/02/22 History atenoloL [Tenormin] 50 mg PO HS 10/05/21 12/02/22 History Allergies Allergy/AdvReac Type Severity Reaction Status Date / Time No Known Allergies Allergy Verified 12/02/22 09:52 Objective - Vital Signs Vital signs: Vital Signs Temp 98.1 F 01/25/23 08:48 Pulse 77 01/25/23 08:48 Resp 17 01/25/23 08:48 BP 118/76 01/25/23 08:48 Pulse Ox 97 01/25/23 08:48 FiO2 Intake & Output 01/24/23 01/25/23 01/25/23 18:59 06:59 18:59 Weight 79.379 kg - Constitutional General appearance: Present: cooperative - EENT Eyes: Present: EOMI ENT: Present: hearing grossly normal - Neck Neck: Present: normal ROM - Respiratory Respiratory: bilateral: CTA - Cardiovascular Heart sounds: normal: S1, S2 - Integumentary Integumentary: Present: normal turgor - Musculoskeletal Musculoskeletal: Present: gait normal - Psychiatric Psychiatric: Present: A&O x's 3, appropriate affect, intact judgment & insight - Additional findings Additional findings: Breast Exam: BRA: 40C inspection: Prior left breast lumpectomy radiation and postoperative changes, right breast grade 2/3 ptosis Palpation: Right breast: Multi-positional exam fullness 10 o'clock position upper outer quadrant no other dominant masses or nodules of concern Right axilla: No adenopathy of concern Left breast: Multi-positional exam post lumpectomy and radiation changes Left axilla: No adenopathy of concern Assessment and Plan Assessment: Impression: Stage I invasive lobular carcinoma right breast Patient status post left breast lumpectomy in 2008 for invasive carcinoma genteic testing VU patient declined MRI of the breast case presented at tumor board on 12-27-22 Plan: HEENT stress test results Ultrasound of the right breast as patient did not have an MRI Right breast needle localization lumpectomy via a reduction mammoplasty incision, right breast sentinel node injection, right sentinel node biopsy, possible right axillary node dissection Risk and benefits of procedure discussed with the patient. Risks include but are not limited to bleeding, infection, reaction to the anesthetic. There could be necrosis of the nipple areolar complex the patient understands and wishes to proceed. Additionally we have discussed the fact that this is an invasive lobular carcinoma that margins could be positive and if so we would have to go back and get more tissue. We have also discussed the risks of sentinel node biopsy which include but are not limited to decreased sensation to the upper arm, lymphedema, wing scapula. The patient understands and wishes to proceed. Cc: Dr. Roy, Dr. Dino Manning Additional CC's: Demarco Manning
--- NOTE | 2023-01-25 10:12 | USB ---
Reason for Exam: Known biopsy proven malignancy. Patient History: Menarche at age 11. Postmenopausal. Breast cancer, left, age 51. Breast cancer, right, age 67. Previous chest radiation therapy at age 52. Hormonal Contraceptives, from age 15 until age 48. 12/08/2022, Malignant US biopsy breast VAD RT on the right side. 2008, Radiation Therapy on the left side. 2008, Chemotherapy. Maternal aunt had breast cancer, age 53. Mother had breast cancer, age 53. Technique: Method: Whole Breast Handheld. Prior Study Comparison: 11/28/2022 Bilateral MG 3D screening mammo w/cad, [facility]. 12/01/2022 Bilateral MG 3D work up w/cad [facility]ARYC[facility], [facility]. 12/01/2022 Right US breast workup limited RT, [facility]. 12/08/2022 Right MG diagnostic mammo RT wo CAD, [facility]. Findings: The whole breast of the right breast, the axilla of the right breast and the retroareolar of the right breast were scanned. At the patient's known breast cancer 10:00 position 10 cm from the nipple an irregular hypoechoic area with some shadowing measures 1.4 x 1.1 cm. The clip is identified within this neoplasm. At the 2:00 position there is a circumscribed hypoechoic area measuring 0.7 x 0.4 x 0.3 cm. Neoplasm cannot be excluded at this site. Biopsy is recommended. Overall Assessment: Known biopsy proven malignancy, BI-RAD 6 Management: Surgical Consultation of the right breast. A clinical breast exam by your physician is recommended on an annual basis and results should be correlated with mammographic findings. This exam should not preclude additional follow-up of suspicious palpable abnormalities. Results were given to the patient verbally at the time of exam. Electronically signed and approved by: Andrea Ash D.O. Radiologis
== END ==
LOC: WWCWWP 08:29
PROVIDERS: ATTEND Surgery
DX: C50.911 Malignant neoplasm of unspecified site of right female breast (principal); K21.9 Gastro-esophageal reflux disease without esophagitis; K58.9 Irritable bowel syndrome, unspecified; Z17.0 Estrogen receptor positive status [ER+]; Z78.0 Asymptomatic menopausal state; Z80.3 Family history of malignant neoplasm of breast; Z92.3 Personal history of irradiation

== ENCOUNTER → 2023-01-31 | Outpatient (CLI) | payer MEDICARE, OTHER ==
[2023-01-31 15:36] LABS: Basophils # (A) 0.07 X 10*3/uL (0.00-0.10); Basophils % (A) 0.7 %; Eosinophils # (A) 0.21 X 10*3/uL (0.04-0.35); HGB 14.9 d/dL (12.0-15.0); Lymphocytes # (A) 1.49 X 10*3/uL (0.90-5.00); Lymphocytes % (A) 14.2 %; MCH 30.5 pg (27.0-32.0); MCHC 32.4 d/dL (32.0-37.0); MCV 94.3 FL (80.0-97.0); Mean Platelet Volume 9.7 FL (9.5-12.2); Monocytes # (A) 0.62 X 10*3/uL (0.20-1.00); Monocytes % (A) 5.9 %; NRBC Per 100 WBC 0 X 10*3/uL (0.00-0.01); Neutrophils # (A) 8.08 X 10*3/uL (1.80-7.70); Neutrophils % (A) 76.8 %; Platelet Count 295 X 10*3/uL (140-440); RBC 4.88 X 10*6/uL (4.10-5.20); RDW 12.5 % (11.5-14.5); WBC 10.51 X 10*3/uL (4.50-10.00)
[2023-01-31 19:07] LABS: Blood Urea Nitrogen 19.5 mg/dL (9.0-27.0); Carbon Dioxide 26.3 mmol/L (21.6-31.8); Chloride 104 mmol/L (96-109); Potassium 4.6 mmol/L (3.5-5.5); Sodium 143 mmol/L (135-145)
== END | disposition home or self-care (01) ==
LOC: LABPAT 12:34
PROVIDERS: ATTEND Internal Medicine Clinical Cardiac Electrophysiology
DX: Z01.812 Encounter for preprocedural laboratory examination (principal); R94.39 Abnormal result of other cardiovascular function study
CPT/HCPCS: 80051; 82565; 84520; 85025

== ENCOUNTER 2023-02-01 09:59 | Day surgery (SDC) | payer MEDICARE, OTHER ==
[~2023-02-01 09:59] MED LIST changes: +ALPRAZolam 0.25 MG TAB PO PRN; +ALPRAZolam 0.5 MG TAB PO PRN; +ASPIRIN 325 MG TAB PO STA; +ATORVASTATIN 80 MG TAB PO STA; +HEPARIN SODIUM,PORCINE (1 ML) 2,500 UNIT in SODIUM CHLORIDE 0.9% 250 ML IRRIGATION PRN; +HEPARIN SODIUM,PORCINE 10,000 UNIT in SODIUM CHLORIDE 0.9% 1,000 ML IRRIGATION PRN; -LACTATED RINGERS 1,000 ML IV SCH; -LIDOCAINE 1% (10MG/ML) FOR IV START INTRADERMA PRN; -MOXIFLOXACIN HCL 0.5% DROPS 3 ML BTL OP PRN; +NITROGLYCERIN SL TABS 0.4 MG TAB SUBLINGUAL PRN; -ONDANSETRON 4 MG/2 ML VIAL IVP PRN; +SODIUM CHLORIDE 0.9% 1,000 ML in EMPTY BAG 1 BAG IV SCH; -TETRACAINE 0.5% OPHTH (PF) DROPS 4 ML BTL OP PRN; -TIMOLOL 0.5% OPHTH DROPS 5 ML BTL OP PRN
[2023-02-01] MEDS ORDERED: SODIUM CHLORIDE 0.9% 1,000 ML IV ONE (10:17)
[2023-02-01 10:37] LABS: Basophils % (A) 0 %; Eosinophils # (A) 0.2 k/uL (0-0.7); Eosinophils % (A) 2 %; HCT 43.7 % (34.0-46.0); HGB 14.7 gm/dL (11.4-16.0); Lymphocytes # (A) 1.5 k/uL (1.0-4.8); Lymphocytes % (A) 14 %; MCH 31.5 pg (25.0-35.0); MCHC 33.6 g/dL (31.0-37.0); MCV 93.7 fL (80.0-100.0); Mean Platelet Volume 7.4; Monocytes # (A) 0.6 k/uL (0-1.0); Monocytes % (A) 6 %; Neutrophils # (A) 7.9 k/uL (1.3-7.7); Neutrophils % (A) 77 %; Platelet Count 280 k/uL (150-450); RBC 4.66 m/uL (3.80-5.40); RDW 12.4 % (11.5-15.5); WBC 10.3 k/uL (3.8-10.6)
[2023-02-01 10:38] VITALS: RESP 16; TEMP 97.6
[2023-02-01 10:58] LABS: African American GFR (CKD) >90 (>60 ml/min/1.73 sqM); Anion Gap 10 mmol/L; Blood Urea Nitrogen 21 mg/dL (7-17); Carbon Dioxide 20 mmol/L (22-30); Chloride 111 mmol/L (98-107); Glucose 103 mg/dL (74-99); Non-African American GFR(CKD) >90 (>60 ml/min/1.73 sqM); Potassium 4.6 mmol/L (3.5-5.1); Sodium 141 mmol/L (137-145)
[2023-02-01] MEDS: VERAPAMIL SYRINGE (5 MG/10 ML) INTRAARTER ONE ×2 (11:28→12:46)
[2023-02-01] MEDS ORDERED: fentaNYL (PF) 50 MCG/ML 2 ML AMP ONE (12:21)
[2023-02-01] MEDS ORDERED: HEPARIN SODIUM 1,000 UN/ML (10ML VL) ONE (12:21)
[2023-02-01] MEDS ORDERED: fentaNYL (PF) 50 MCG/ML 2 ML AMP IVP ONE (12:25)
[2023-02-01] MEDS ORDERED: MIDAZOLAM 2 MG/2 ML VIAL IVP ONE (12:25)
[2023-02-01] MEDS ORDERED: LIDOCAINE 1% INJ 10MG/ML (20 ML MDV) SQ ONE (12:26)
[2023-02-01] MEDS ORDERED: HEPARIN SODIUM 1,000 UN/ML (10ML VL) IV ONE (12:35)
[2023-02-01] MEDS ORDERED: NITROGLYCERIN 1000MCG/10ML SYRINGE INTRAARTER ONE (12:36)
[2023-02-01] MEDS ORDERED: IOPAMIDOL-370 100ML BTL INJ ONE (12:46)
[2023-02-01] MEDS ORDERED: RX INFO: IV CONTRAST WAS GIVEN 1 EACH MISC MISCELLANE PRN (13:03)
--- NOTE | 2023-02-01 13:03 | P.CARDCATH ---
Date of Procedure: 02/01/23 Description of Procedure: DIAGNOSTIC CORONARY ANGIOGRAPHY and LEFT HEART CATH REPORT PROCEDURES PERFORMED: Left heart catheterization Selective coronary angiography Moderate conscious sedation 22 mins Right radial access INDICATION: Positive nuclear stress test Patient is a 67-year-old female who was seen in clinic for perioperative cardiac respiratory breast surgery. She had an interesting T-wave inversions in ECG. This was followed up by a Lexiscan nuclear stress test this scan showed reversible perfusion defect in anterior wall. For this she was scheduled for heart catheterization procedure. CONSENT: I have discussed the risks, benefits and alternative therapies for the above-mentioned procedure, sedation/analgesia and necessary blood product administration (if indicated, as they pertain to this patient). The patient has indicated understanding and acceptance of the risks and procedures discussed. Conscious Sedation: Patient's ECG, heart rate, blood pressure, pulse oximetry was monitored throughout the duration of procedure under the direct supervision. [1] mg Versed and [50] mg Fentanyl were used for induction of moderate conscious sedation. Total duration of 22 minutes. PROCEDURE:After the risks, benefits and alternatives of the above mentioned procedure explained in detail with the patient, informed consent was obtained. Patient was taken to the catheterization lab and prepped and draped in usual sterile fashion. 1% lidocaine was infiltrated over the right radial artery. A 6- Filipino sheath was placed in the right radial artery using modified Seldinger technique. The sheath was flushed 5 mg verapamil was administered intra- arterially. J tipped wire was advanced under fluoroscopic guidance. Once the wire tip reached aortic root 6000 units of IV heparin was given. Over the wire JL3.5 diagnostic catheter was advanced. Wire was removed, catheter was flushed and manipulated under fluoroscopy to selectively engaged the left coronary ostium. Left coronary angioplasty was performed in different angiographic projections. This catheter was exchanged for a JR4 diagnostic catheter over the wire. 100mcg nitroglycerine was administered intra-arterially and angiogram was repeated. The catheter was flushed and manipulated to cross the aortic valve. LV pressures were obtained. Pullback was performed across aortic valve and catheter was manipulated to selectively engage the right coronary ostium under fluoroscopic guidance. Right coronary angiography was performed in different angiographic projections. Catheter was removed over the wire. Radial sheath was flushed. The right radial sheath was removed and a TR band was placed with excellent patent hemostasis was achieved. The patient tolerated the procedure well. Patient was transported back to the post catheterization holding area in stable condition. Angiographic images were reviewed in detail. HEMODYNAMICS: Aortic Pressure: 113/45 mmHg. LV pressure: 109/10 mmHg. LVEDP 17 mmHg. SELECTIVE CORONARY ARTERIOGRAPHY: LEFT MAIN: The left main is a short and large caliber vessel which trifurcates into the LAD, ramus intermedius and circumflex. There is no significant stenosis. LEFT ANTERIOR DESCENDING CORONARY ARTERY: LAD is a large caliber vessel which wraps around to the apex. Proximal LAD appears angiographically normal. It gives rise to a small size diagonal 1, medium-sized diagonal 2 which appears angiographically normal. The origin of diagonal 1 and diagonal 2 are very close together. Mid LAD appears angiographically normal. Distal LAD near the apex has moderate nonobstructive disease ranging in the severity of 40-50%. It is 1mm vessel in that area. Ramus Intermedius: Medium caliber vessel, appears angiographically normal LEFT CIRCUMFLEX CORONARY ARTERY: It is nondominant vessel. Left circumflex is a moderate caliber vessel without significant stenosis. RIGHT CORONARY ARTERY: Dominant vessel. The right coronary artery is a large caliber vessel which gives off a PDA and PLV branch. It appears angiographically normal. IMPRESSION: Moderate CAD involving distal LAD not amiable for intervention Minimal luminal irregularities in other coronaries Normal left sided filling pressures PLAN: Medical management with statins and aspirin 81mg Okay to d.c in 3-4 hr. Routine post heart cath care F/u with Dr Hoover in clinic 1-2 weeks Findings communicated to spouse via Phone. Left a voice mail Performing Physician Rafy Swain MD
[2023-02-01] MEDS ORDERED: SODIUM CHLORIDE 0.9% 1,000 ML IV SCH (13:15)
[2023-02-01] MEDS ORDERED: ACETAMINOPHEN TAB 500 MG TAB PO PRN ×2 (14:00→14:18)
[2023-02-01 16:45] VITALS: BP 127/72; PULSE 63
== END 2023-02-01 16:45 | disposition home or self-care (01) ==
LOC: CATHCVL 09:59
PROVIDERS: ATTEND Student in an Organized Health Care Education/Training Program
DX: I25.10 Atherosclerotic heart disease of native coronary artery without angina pectoris (principal); I35.1 Nonrheumatic aortic (valve) insufficiency; I49.3 Ventricular premature depolarization; Z79.899 Other long term (current) drug therapy; Z79.1 Long term (current) use of non-steroidal anti-inflammatories (NSAID)
CPT/HCPCS: 93458; 80048; 85025; C1769; C1894; J2250; J2001; J3010; J1644; Q9967; J2305

== ENCOUNTER 2023-02-14 08:40 | Day surgery (SDC) | payer MEDICARE, OTHER ==
[~2023-02-14 08:40] MED LIST changes: -ALPRAZolam 0.25 MG TAB PO PRN; -ALPRAZolam 0.5 MG TAB PO PRN; -ASPIRIN 325 MG TAB PO STA; -ATORVASTATIN 80 MG TAB PO STA; +DEXAMETHASONE SOD PHOSPHATE 4 MG/ML 1 ML VIAL IV ONE; -HEPARIN SODIUM,PORCINE (1 ML) 2,500 UNIT in SODIUM CHLORIDE 0.9% 250 ML IRRIGATION PRN; -HEPARIN SODIUM,PORCINE 10,000 UNIT in SODIUM CHLORIDE 0.9% 1,000 ML IRRIGATION PRN; +HEPARIN SODIUM,PORCINE/PF 5,000 UNIT/0.5 ML SYRINGE SQ PRN; +HYDROmorphone 0.5 MG/0.5 ML SYRINGE IVP PRN; +LACTATED RINGERS 1,000 ML IV SCH; +LIDOCAINE 1% (10MG/ML) FOR IV START INTRADERMA PRN; +MIDAZOLAM 2 MG/2 ML VIAL IV PRN; -NITROGLYCERIN SL TABS 0.4 MG TAB SUBLINGUAL PRN; +ONDANSETRON 4 MG/2 ML VIAL IVP ONE; -SODIUM CHLORIDE 0.9% 1,000 ML in EMPTY BAG 1 BAG IV SCH
[2023-02-14] MEDS ORDERED: ALPRAZolam 0.25 MG TAB ONE (09:27)
[2023-02-14] MEDS ORDERED: LIDOCAINE 1% INJ 10MG/ML (20 ML MDV) SQ ONE (10:33)
[2023-02-14 10:35] VITALS: RESP 16
--- NOTE | 2023-02-14 11:07 | P.NAPBC ---
NAPBC Queries - NAPBC Queries Was patient's case review presented at [facility] tumor board? If no, comment.: Yes Was patient's pathology reviewed at [facility]? If no, comment.: Yes Was breast conservation surgery offered? If no, comment.: Yes Was sentinel node biopsy offered? If no, comment.: Yes Was diagnosis confirmed by percutaneous core biopsy? If no, comment.: Yes Is patient mastectomy patient?: No Was a preop referral to reconstructive surgeon offered?: No Clinical Stage: [id number]+Pr+Her2- stage I right breast invasive lobular cancer
--- NOTE | 2023-02-14 11:30 | USB ---
HISTORY: Right breast cancer COMPARISON: Right breast ultrasound 01/25/2023, right axilla ultrasound 12/30/2022, diagnostic right m ammogram 12/08/2022, right breast ultrasound 12/01/2022, bilateral mammogram 12/01/2022, 11/28/2022 PROCEDURE: The procedure was explained to the patient and all questions were answered. The potential risks inclu ding but not limited to bleeding, infection, and potential need for additional work up were discussed . Informed, written consent was obtained. The correct site was marked. A time out was performed. Ultrasound guided localization was performed for the lesion located in the right breast at 10:00 10 c m from the nipple. This was described on the previous report and has been previous biopsy with clip d emonstrated. The skin was prepped in the usual manner. Local anesthetic was administered to the acces s site using approximately 8 mL of lidocaine. The abnormality was approached from the inferior latera l aspect under constant ultrasound guidance.?A 9 Kopan needle was placed into the superficial aspect of the lesion with wire then deployed. Postprocedure mammogram demonstrates the bulk of the lesion to be anterior to the wire with the tip of the wire along the posterior lateral aspect of the lesion. T he tip of the wire is approximately 7 mm from the biopsy clip. Ultrasound guided localization was performed for the lesion located in the right breast at 2:00. This was described on the previous report. The skin was prepped in the usual manner. Local anesthetic was administered to the access site using approximately 8 mL of lidocaine. The abnormality was approache d from the inferior aspect under constant ultrasound guidance due to limited patient positioning.?A 7 Kopan needle was placed through the small nodule. Technically challenging due to size of the nodule. Nodule is approximately 8 mm from the tip of the needle. May represent an intramammary lymph node. P ostprocedure mammogram demonstrates wire to be in proper position. Pressure was held at the biopsy site for hemostasis. Steri-strips were applied to the access site. Th e patient tolerated the procedure well and was sent to preoperative room. IMPRESSION: Successful ultrasound guided localization.
[2023-02-14] MEDS ORDERED: WATER FOR INJECTION, STERILE 10 ML VIAL IV ONE (11:39)
[2023-02-14] MEDS ORDERED: fentaNYL (PF) 50 MCG/ML 2 ML AMP ONE (11:39)
[2023-02-14] MEDS ORDERED: LIDOCAINE 1% INJ 10MG/ML (20 ML MDV) ONE (11:39)
[2023-02-14] MEDS ORDERED: SUCCINYLCHOLINE CHLORIDE 200 MG/10 ML VIAL IV ONE (11:39)
[2023-02-14] MEDS ORDERED: PHENYLEPHRINE-0.9% NACL SYG 1,000 MCG/10 ML SYRINGE ONE (11:39)
[2023-02-14] MEDS ORDERED: PROPOFOL 10 MG/ML 20 ML VIAL IV ONE (11:39)
[2023-02-14] MEDS ORDERED: MIDAZOLAM 2 MG/2 ML VIAL ONE (11:39)
[2023-02-14] MEDS ORDERED: ePHEDrine 50 MG/ML 1 ML VIAL ONE (11:39)
[2023-02-14] MEDS ORDERED: HYDROmorphone (PF) 1 MG/ML ONE (11:39)
--- NOTE | 2023-02-14 12:20 | NM ---
EXAMINATION TYPE: NM sentinel node injection DATE OF EXAM: 02/14/2023 COMPARISON: No direct comparisons CLINICAL INDICATION: Female, 67 years old with history of Breast Cancer; TECHNIQUE AND FINDINGS: The procedure of sentinel lymph node injection was explained to the patient. The benefits, alternatives, and risks were discussed. An informed consent was then obtained. Overlying skin is cleaned with sterile alcohol. Following this, 503 uCi Tc99m Tilmanocept was inject ed in the upper outer aspect of the right nipple intradermally. The patient tolerated the procedure well without any immediate complication. The patient was kept in the radiology department for short stay after the procedure and then taken to surgery for surgical p rocedure what is presumed intraoperative gamma probe will be used for sentinel lymph node detection. IMPRESSION: Right breast radiotracer injection for sentinel node localization as above.
[2023-02-14] MEDS ORDERED: IV FLUID CONTINUATION 1,000 ML IV ONE (14:29)
--- NOTE | 2023-02-14 14:40 | P.OP ---
Date of Procedure: 02/14/23 Preoperative Diagnosis: Right breast invasive lobular carcinoma 10:00, questionable second lesion right breast at 2:00 Postoperative Diagnosis: Same Procedure(s) Performed: Right breast sentinel node biopsy, right breast needle localization lumpectomy of invasive lobular carcinoma at 10:00, right breast needle localized lumpectomy lesion at 2:00, procedure done via a reduction mammoplasty approach Anesthesia: SUBHA Surgeon: Deedee Lawrence Estimated Blood Loss (ml): 20 IV fluids (ml): 900 Pathology: other ([place] node right side, right lumpectomy 2 breast tissue, breast tissue from reduction mammoplasty) Condition: stable Disposition: same day Indications for Procedure: core biopsy positive invasive lobular carcinoma right breast Operative Findings: Dense breast tissue Description of Procedure: The patient was seen first in the radiology department. Needle localization of the 10:00 invasive lobular carcinoma was performed and needle localization of the questionable area at 2:00 was performed. Radio tracer injection in the periareolar region was done. The patient was then seen in the preoperative area. She was marked for reduction mammoplasty incision. She was brought to the operative suite. Following induction of anesthesia the neoprobe was used to irrigate the axilla. The patient was noted to have radiotracer in the axilla. The patient was then prepped and draped in a sterile fashion. The area of the right breast was approached. The sentinel node area was approached initially. Using the neoprobe the area of greatest radioactivity was identified. Incision was made over this and the axillary tissue was probed using the neoprobe. The area of greatest radioactivity was identified this was grasped using an Allis clamp. The tissue was resected using the Harmonic scalpel. Interrogation of the area revealed a 10 second count 8183. There was an obvious lymph node at that site. The background count was 23 at 10 seconds. After assured that hemostasis was attained the deep tissues were closed using 3- 0 Vicryl suture. The skin was closed using 4-0 Monocryl. The area of the breast was approached. Utilizing marking which had been marked preoperatively the inferior pedicle was de-epithelialized. Surrounding the nipple areolar complex of 42 cookie cutter was utilized to size the nipple areolar complex. The lateral breast tissue was then excised being careful to identify the needle which was localizing the lesion at 10:00. The needle was followed down to the area of concern and surrounding tissue was excised. Wide excision was performed. The specimen was painted for orientation. Radiograph revealed the lesion of concern about removed. The area was marked with titanium clips. Following this continued dissection of the breast tissue was performed to the region of the 2:00 localization. This needle was again brought into the incision and dissection was performed surrounding the area of concern. The area was marked using titanium clips. The specimen was painted for orientation and sent to radiology. Radiograph of both of the specimens revealed that the lesions of concern about removed. Was well irrigated. Surgicel in powder form was placed. After assured that hemostasis was attained the flaps were brought together and secured using a 0 Vicryl suture. This was followed by 4-0 running subcuticular suture. Prior to closure. The drain was placed laterally and secured using nylon suture. Following this a #42 cookie cutter was utilized to eleazar the nipple aerolar complex. The nipple areolar complex was matured using 3-0 Vicryl suture and 4-0 Monocryl. Surgical glue was placed. A sterile dressing was applied. The patient tolerated the procedure in stable condition. All instrument and sponge counts were correct at the end of the case. The specimen was approximately 0.8 pounds.
[2023-02-14 14:55] VITALS: TEMP 97.1
[2023-02-14] MEDS ORDERED: HYDROcodone/APAP 5-325MG 1 EACH TAB ONE (15:47)
[2023-02-14] MEDS ORDERED: ONDANSETRON 4 MG/2 ML VIAL ONE (15:54)
[2023-02-14] MEDS ORDERED: ONDANSETRON 4 MG/2 ML VIAL IVP ONE (15:57)
[2023-02-14] MEDS ORDERED: HYDROcodone/APAP 5-325MG 1 EACH TAB PO ONE (16:21)
[2023-02-14 16:34] VITALS: PULSE 75
[2023-02-14 16:57] VITALS: BP 118/73
--- NOTE | 2023-02-27 11:15 | MM ---
Reason for Exam: Post Procedure Mammogram. Last screening mammogram was performed 3 month(s) ago. Patient History: Menarche at age 11. Postmenopausal. Breast cancer, left, age 51. Breast cancer, right, age 67. Previous chest radiation therapy at age 52. Hormonal Contraceptives, from age 15 until age 48. 12/08/2022, Malignant US biopsy breast VAD RT on the right side. 2008, Radiation Therapy on the left side. 2008, Chemotherapy. Maternal aunt had breast cancer, age 53. Mother had breast cancer, age 53. Prior Study Comparison: 11/28/2022 Bilateral MG 3D screening mammo w/cad, [facility]. 12/01/2022 Bilateral MG 3D work up w/cad [facility], [facility]. 12/08/2022 Right MG diagnostic mammo RT wo CAD, [facility]. Tissue Density: Right: The breast tissue is heterogeneously dense. This may lower the sensitivity of mammography. Pathology Description: Location: 10 o'clock, upper outer quadrant. The procedure was explained to the patient and all questions were answered. The potential risks including but not limited to bleeding, infection, and potential need for additional work up were discussed. Informed, written consent was obtained. The correct site was marked. A time out was performed. Ultrasound guided localization was performed for the lesion located in the right breast at 10:00 10 cm from the nipple. This was described on the previous report and has been previous biopsy with clip demonstrated. The skin was prepped in the usual manner. Local anesthetic was administered to the access site using approximately 8 mL of lidocaine. The abnormality was approached from the inferior lateral aspect under constant ultrasound guidance. A 9 Kopan needle was placed into the superficial aspect of the lesion with wire then deployed. Postprocedure mammogram demonstrates the bulk of the lesion to be anterior to the wire with the tip of the wire along the posterior lateral aspect of the lesion. The tip of the wire is approximately 7 mm from the biopsy clip. Ultrasound guided localization was performed for the lesion located in the right breast at 2:00. This was described on the previous report. The skin was prepped in the usual manner. Local anesthetic was administered to the access site using approximately 8 mL of lidocaine. The abnormality was approached from the inferior aspect under constant ultrasound guidance due to limited patient positioning. A 7 Kopan needle was placed through the small nodule. Technically challenging due to size of the nodule. Nodule is approximately 8 mm from the tip of the needle. May represent an intramammary lymph node. Postprocedure mammogram demonstrates wire to be in proper position. Pressure was held at the biopsy site for hemostasis. Steri-strips were applied to the access site. The patient tolerated the procedure well and was sent to preoperative room. IMPRESSION: Successful ultrasound guided localization. Pathology Results: Result: Malignant, Invasive lobular carcinoma. A. RIGHT BREAST, LATERAL LESION CANCER 10:00, LUMPECTOMY: Invasive lobular carcinoma, margins negative. Extensive background lobular neoplasia (ALH/LCIS). See Surgical Pathology Cancer Case Summary. B. RIGHT BREAST, 2:00 LESION, UPPER INNER, NEEDLE LOCALIZATION EXCISION: Features suggestive of lipoma with focal fat necrosis and adjacent benign breast tissue. C. RIGHT SENTINEL LYMPH NODE: Lymph node negative for metastasis. CK7 and JULIA immunostains performed on blocks C1, C2 and C3 are confirmatory (controls appropriate). D. RIGHT ADDITIONAL AXILLARY TISSUE: Lymph node negative for metastasis. E. RIGHT BREAST TISSUE: Lobular neoplasia (ALH/LCIS) and background fibrocystic changes. Negative for invasive malignancy. Overall Assessment: Malignant Assessment: MG diagnostic mammo RT wo CAD - Right: Known biopsy proven malignancy, BI-RAD 6. Management: Surgical Consultation of the right breast. Electronically signed and approved by: Marvin Wheat D.O.
== END 2023-02-14 17:35 | disposition home or self-care (01) ==
LOC: OR 08:40
PROVIDERS: ATTEND Surgery
DX: C50.411 Malignant neoplasm of upper-outer quadrant of right female breast (principal); N60.91 Unspecified benign mammary dysplasia of right breast; I25.10 Atherosclerotic heart disease of native coronary artery without angina pectoris; I10 Essential (primary) hypertension; E78.5 Hyperlipidemia, unspecified; Z98.890 Other specified postprocedural states; Z79.899 Other long term (current) drug therapy
CPT/HCPCS: 19301; 38525; 88342; 88307; 88341; 77065; 76098; 19285; 38792; C1819 ×2; A9520; J2250; J0330; J1100; J0690; J2405; J2001; J3010; J1170 ×2; J2704; J1644; J2371; 19286

== ENCOUNTER → 2023-02-17 | Outpatient (CLI) | payer MEDICARE, OTHER ==
[2023-02-17 14:54] VITALS: BP 146/78; PULSE 102; RESP 17; TEMP 98
--- NOTE | 2023-02-17 15:01 | P.PN ---
Subjective Progress Note Date: 02/17/23 The patient is status post right breast lumpectomy via reduction mammoplasty incision and SNB on 02-14-23. She is doing well at this time. KIANNA output 80 mL of serous fluid Incision clean and dry Some blistering at the superior 12 o'clock position of the areolar Pathology pending Lungs: Clear Heart: Regular rate and rhythm Plan: Follow up next week
== END ==
LOC: WWCWWP 14:43
PROVIDERS: ATTEND Surgery
DX: L76.82 Other postprocedural complications of skin and subcutaneous tissue (principal)

== ENCOUNTER → 2023-02-21 | Outpatient (CLI) | payer MEDICARE, OTHER ==
--- NOTE | 2023-02-21 14:50 | P.PN ---
Progress Note - Text Progress Note Date: 02/21/23 The patient is status post right breast lumpectomy via reduction mammoplasty incision and SNB on 02-14-23. She is doing well at this time. pathology: pending KIANNA output 20 mL of serous fluid daily Incision clean and dry Some blistering at the superior 12 o'clock position of the areolar, improving Pathology pending Lungs: Clear Heart: Regular rate and rhythm Plan: Follow up next week
== END ==
LOC: WWCWWP 14:40
PROVIDERS: ATTEND Surgery
DX: Z90.11 Acquired absence of right breast and nipple (principal); Z79.82 Long term (current) use of aspirin

== ENCOUNTER → 2023-03-02 | Outpatient (CLI) | payer MEDICARE, OTHER ==
--- NOTE | 2023-03-02 09:15 | P.PN ---
Progress Note - Text Progress Note Date: 03/02/23 The patient is status post right breast lumpectomy via reduction mammoplasty incision and SNB on 02-14-23. She is doing well at this time. Pathology invasive lobular cancer margins (-), tumor size 1.6 cm. ALH/LCIS. Node (-). Incision clean and dry Some blistering at the superior 12 o'clock position of the areolar, improving Lungs: Clear Heart: Regular rate and rhythm Plan: Follow-up radiation oncology Follow-up medical oncology/ Dr. Manning Follow-up when necessary 4 months CC: Dr. Roy
== END ==
LOC: WWCWWP 08:25
PROVIDERS: ATTEND Surgery
DX: L76.82 Other postprocedural complications of skin and subcutaneous tissue (principal)

== ENCOUNTER → 2023-06-22 | Outpatient (CLI) | payer MEDICARE, OTHER ==
--- NOTE | 2023-06-22 11:19 | P.PN ---
Subjective Progress Note Date: 06/22/23 Principal diagnosis: Invasive lobular carcinoma right breast Complete ultrasound was done of the right breast on 839494. This was reviewed in detail with Dr. Ash. The known cancer appears to be approximately 1.4 x 1.1 cm. There is a second lesion at the 2 o'clock position which measures 0.7 x 0.4 cm for which biopsy has been recommended. I discussed this with the patient and rather than have a biopsy she just wants this area to be localized and removed at the time of the surgery. She states that even if this were cancer she would not have a mastectomy. She understands that if margins are positive on either of these that further surgery may be necessary. Therefore we are awaiting clearance from cardiology and his clearance is obtained we will plan to proceed with surgery next week. Plan: 1. Medical clearance Dr. Jarquin 2. Clearance cardiology 3. Right breast needle localization of 2 areas of concern via ultrasound with lumpectomy via reduction mammoplasty incision Right sentinel node injection Right sentinel node biopsy possible right axillary node dissection CC: DR. Manning Original Note: Subjective Progress Note Date: 01/25/23 Chief Complaint: Biopsy-proven right breast invasive lobular carcinoma Greer is a 67-year-old white female [place] [address]. This led to additional bilateral diagnostic mammograms and ultrasound [place] [address]. The left breast did not have anything which required further evaluation however on the right breast a 1.4 x 1.5 cm lesion was identified at 10:00 10 cm from the nipple which was highly suggestive of malignancy. A core biopsy was performed of this site on 9723 this revealed invasive lobular carcinoma grade 2 it is ER/AL positive and HER-2 negative. She was seen in consultation by Dr. Manning recommended surgical intervention without any prior neoadjuvant therapy. Of importance is the fact that she underwent a left lumpectomy in 2008 she underwent chemotherapy, and radiation therapy. She is uncertain of the stage. She was on Femora 10 years. She has been off it for about 5 years. She had blood drawn for genetic testing, this revealed a oriented unknown significance. The patient was unable to feel the lump in her right breast recently. This was found on screening mammogram. [place] [address], this revealed a variant of unknown significance The patient opted not to go to the [place] area for an MRI, I have again reviewed her mammogram with Dr. Ash from radiology and he has recommended a right breast complete ultrasound She recently heard her right foot She had a stress test last week and results are pending case presented at tumor board on 12-27-22 ultrasound was done of the right breast on 222914. This was reviewed in detail with Dr. Ash. The known cancer appears to be approximately 1.4 x 1.1 cm. There is a second lesion at the 2 o'clock position which measures 0.7 x 0.4 cm for which biopsy has been recommended. I discussed this with the patient and rather than have a biopsy she just wants this area to be localized and removed at the time of the surgery. She states that even if this were cancer she would not have a mastectomy. She understands that if margins are positive on either of these that further surgery may be necessary. Therefore we are awaiting clearance from cardiology and his clearance is obtained we will plan to proceed with surgery next week. 06-23-23 Right breast lumpectomy via reduction mammoplasty incision and sentinel node biopsy on 02-14-2023. Pathology revealed invasive lobular carcinoma all margins negative, tumor size 1.6 cm. Lymph nodes were (-), grade 2. note Dr. Manning reviewed 02-28-23; she will follow up with him next week probable hormonal therapy ? oncotype results she completed radiation therapy 2023 On the left side she had a lumpectomy and radiation in 2008, she also had chemotherapy she was on Femora for 10 years Any new lumps masses or nodules of concern however she does have some redness of the skin related to the radiation therapy CAffiene: 3 pops/day nicotine: none hormones: BCP: used them for 30 years, hormones, none chocolate: occasional Family History: Mother: of breast cancer at the age of 53, stage 4 at diagnosis maternal aunt: at 53 of breast cancer father: stomach and colon cancer pateranl grandfather: colon cancer Hormonal History: menarche: 10 A1 menoapuse: 48 Surgical History: right knee left breast lumpectomy and ANB 2008 gallbaldder polyp in cervical area Several colonoscopies bilateral cataract surgery Medical history: surveillance monitor at this time, Dr. So right knee pain IBS Social History: nicotine: none alcohol: occasional drugs: none - Constitutional Constitutional: Reports sweats - EENT Eyes: bilateral as per HPI Ears: bilateral: tinnitus, deny: decreased hearing Ears, nose, mouth and throat: Denies headache, Denies sore throat - Breasts Breasts: bilateral: as per HPI - Cardiovascular Cardiovascular: Reports as per HPI - Respiratory Respiratory: Reports cough - Gastrointestinal Gastrointestinal: Reports as per HPI - Genitourinary (Female) Genitourinary: Reports as per HPI - Menstruation Menstruation: Reports postmenopausal - Musculoskeletal Comment: right knee pain, bursitis - Integumentary Comment: none - Neurological Neurological: Denies numbness, Denies weakness - Psychiatric Psychiatric: Reports anxiety - Endocrine Endocrine: Reports fatigue - Hematologic/Lymphatic Comment: none - Allergic/Immunologic Allergic/Immunologic: Reports seasonal allergies Past Medical History Past Medical History: Cancer, GERD/Reflux Additional Past Medical History / Comment(s): hx. leftbreast cancer History of Any Multi-Drug Resistant Organisms: None Reported Past Surgical History: Ablation, Cholecystectomy, Orthopedic Surgery Additional Past Surgical History / Comment(s): right knee surg., colonoscopy, cataract removal with lens implant, CARDIAC ABLATION. Loop monitor placement Past Anesthesia/Blood Transfusion Reactions: No Reported Reaction Past Psychological History: No Psychological Hx Reported Smoking Status: Never smoker Past Alcohol Use History: None Reported Past Drug Use History: None Reported - Past Family History Mother Family Medical History: Cancer Father Family Medical History: Cancer Medications and Allergies Home Medications Medication Instructions Recorded Confirmed Type Dicyclomine [Bentyl] 10 mg PO TID PRN 04/23/19 12/02/22 History Cholecalciferol [Vitamin D3 (25 25 mcg PO HS 10/05/21 12/02/22 History Mcg = 1000 Iu)] Famotidine [Pepcid] 20 mg PO HS 10/05/21 12/02/22 History atenoloL [Tenormin] 50 mg PO HS 10/05/21 12/02/22 History Allergies Allergy/AdvReac Type Severity Reaction Status Date / Time No Known Allergies Allergy Verified 12/02/22 09:52 Objective - Constitutional General appearance: Present: cooperative - EENT Eyes: Present: EOMI ENT: Present: hearing grossly normal - Neck Neck: Present: normal ROM - Respiratory Respiratory: bilateral: CTA - Cardiovascular Heart sounds: normal: S1, S2 - Integumentary Integumentary: Present: normal turgor - Musculoskeletal Musculoskeletal: Present: gait normal - Psychiatric Psychiatric: Present: A&O x's 3, appropriate affect, intact judgment & insight - Additional findings Additional findings: Breast examination: Bra: 40 B Inspection: Postoperative changes bilateral breast Right breast: Reduction mammoplasty incision clean and dry well-healed there is scar tissue and radiation changes but no dominant masses or nodules of concern Right axilla: No adenopathy of concern Left breast: Status postlumpectomy post radiation and surgical changes no dominant masses or nodules of concern Left axilla: No adenopathy of concern Assessment and Plan Assessment: Impression: Patient's status post bilateral breast cancers no evidence of cancer at this time She is going to follow-up with medical oncology next week Plan: Obtain Oncotype on the right breast tumor Follow-up medical oncology Probable hormonal therapy Patient completed radiation therapy follow-up with radiation oncology Follow-up here in 4 months CC: DR. Roy
[2023-06-22 14:32] VITALS: BP 99/65; PULSE 88; RESP 17; TEMP 97.8
== END | disposition home or self-care (01) ==
LOC: WWCWWP 10:46
PROVIDERS: ATTEND Surgery
DX: Z85.3 Personal history of malignant neoplasm of breast (principal)

== ENCOUNTER → 2023-10-23 | Outpatient (CLI) | payer MEDICARE, OTHER ==
--- NOTE | 2023-10-23 08:58 | USB ---
Reason for Exam: Clinical finding. Indicated Problems: Pain of the left side (Focal) for 3 Week(s). Patient History: Menarche at age 11. Postmenopausal. Breast cancer, left, age 51. Breast cancer, right, age 67. Breast cancer, right, age 67. Previous chest radiation therapy at age 52. Hormonal Contraceptives, from age 15 until age 48. 02/14/2023, Lumpectomy on the Right side. 02/14/2023, Malignant US breast localization RT on the right side. 12/08/2022, Malignant US biopsy breast VAD RT on the right side. 2008, Radiation Therapy on the left side. 2008, Chemotherapy. Maternal aunt had breast cancer, age 53. Mother had breast cancer, age 53. Technique: Method: Whole Breast Handheld. Prior Study Comparison: 12/01/2022 Bilateral MG 3D work up w/cad [facility], [facility]. 12/01/2022 Right US breast workup limited RT, [facility]. 12/08/2022 Right MG diagnostic mammo RT wo CAD, [facility]. 12/30/2022 Right US breast axilla RT, [facility]. 01/25/2023 Right US breast RT, [facility]. 02/14/2023 Right MG diagnostic mammo RT wo CAD, [facility]. Findings: The whole breast of the right breast, the axilla of the right breast and the retroareolar of the right breast were scanned. Fluid collection noted at the right 5:00 position 5 cm from the nipple measuring 4.4 x 4.8 x 1.8 cm compatible with seroma. Shadowing calcification noted at the right 2:00 position.. Overall Assessment: Probably benign, BI-RAD 3 Management: Diagnostic Breast Ultrasound of the right breast in 3 months. A clinical breast exam by your physician is recommended on an annual basis and results should be correlated with mammographic findings. This exam should not preclude additional follow-up of suspicious palpable abnormalities. Results were given to the patient verbally at the time of exam. Electronically signed and approved by: Saleem Trujillo M.D. Radiologis
== END | disposition home or self-care (01) ==
LOC: RADUSWWP 08:13
PROVIDERS: ATTEND Internal Medicine Hematology & Oncology
DX: C50.411 Malignant neoplasm of upper-outer quadrant of right female breast (principal); C50.512 Malignant neoplasm of lower-outer quadrant of left female breast; M81.8 Other osteoporosis without current pathological fracture; I10 Essential (primary) hypertension; Z78.0 Asymptomatic menopausal state; Z80.3 Family history of malignant neoplasm of breast

== ENCOUNTER → 2023-10-26 | Outpatient (CLI) | payer MEDICARE, OTHER ==
[2023-10-26 12:27] VITALS: BP 120/74; PULSE 66; RESP 17; TEMP 97.8
--- NOTE | 2023-10-26 12:53 | P.PN ---
Subjective Progress Note Date: 10/26/23 Principal diagnosis: stage II left breast IDC 2008; right breast ILC stage I 2022; Subjective Progress Note Date: 01/25/23 Chief Complaint: Biopsy-proven right breast invasive lobular carcinoma Greer is a 67-year-old white female [place] [address]. This led to additional bilateral diagnostic mammograms [place] [address]. The left breast did not have anything which required further evaluation however on the right breast a 1.4 x 1.5 cm lesion was identified at 10:00 10 cm from the nipple which was highly suggestive of malignancy. A core biopsy was performed of this site on 9723 this revealed invasive lobular carcinoma grade 2 it is ER/KS positive and HER-2 negative. She was seen in consultation by Dr. Manning recommended surgical intervention without any prior neoadjuvant therapy. Of importance is the fact that she underwent a left lumpectomy in 2008 she underwent chemotherapy, and radiation therapy. She is uncertain of the stage. She was on Femora 10 years. She has been off it for about 5 years. She had blood drawn for genetic testing, this revealed a oriented unknown significance. The patient was unable to feel the lump in her right breast recently. This was found on screening mammogram. [place] [address], this revealed a variant of unknown significance The patient opted not to go to the [place] area for an MRI, I have again reviewed her mammogram with Dr. Ash from radiology and he has recommended a right breast complete ultrasound She recently heard her right foot She had a stress test last week and results are pending case presented at tumor board on 12-27-22 A second lesion was noted in her right breast which was to be excised at the [facility] surgery 10-26-23 She is not complaining of any new lumps masses or nodules of concern in either breast. For the past month after she did some heavy lifting she has some discomfort in the lateral aspect of her right breast. Note medical oncology 10-17-23 reviewed left breast IDC 2008 completed chemotherapy and radiation therapy for this side right breast ILC 2002, right breast radiation therapy completed 06-27-23; T(1.6 cm)[id number]+Pr+Her2-G2 did not take Femora concerned about side affects oncotype 8 An ultrasound was performed on 10-23-2023. This revealed a fluid collection at the right breast at 5:00 which was approximately 4.4 x 4.8 cm in size compatible with a seroma. It was felt to be BI-RADS 3 diagnostic breast ultrasound of the right breast in 3 months was recommended. CAffiene: 3 pops/day nicotine: none hormones: BCP: used them for 30 years, hormones, none chocolate: occasional Family History: Mother: of breast cancer at the age of 53, stage 4 at diagnosis maternal aunt: at 53 of breast cancer father: stomach and colon cancer pateranl grandfather: colon cancer Hormonal History: menarche: 10 A1 menoapuse: 48 Surgical History: right knee left breast lumpectomy and ANB 2009 gallbaldder polyp in cervical area Several colonoscopies bilateral cataract surgery Medical history: playground monitor at this time, Dr. So right knee pain IBS Social History: nicotine: none alcohol: occasional drugs: none - Constitutional Constitutional: Reports sweats - EENT Eyes: bilateral as per HPI Ears: bilateral: tinnitus, deny: decreased hearing Ears, nose, mouth and throat: Denies headache, Denies sore throat - Breasts Breasts: bilateral: as per HPI - Cardiovascular Cardiovascular: Reports as per HPI - Respiratory Respiratory: Reports cough - Gastrointestinal Gastrointestinal: Reports as per HPI - Genitourinary (Female) Genitourinary: Reports as per HPI - Menstruation Menstruation: Reports postmenopausal - Musculoskeletal Comment: right knee pain, bursitis - Integumentary Comment: none - Neurological Neurological: Denies numbness, Denies weakness - Psychiatric Psychiatric: Reports anxiety - Endocrine Endocrine: Reports fatigue - Hematologic/Lymphatic Comment: none - Allergic/Immunologic Allergic/Immunologic: Reports seasonal allergies Past Medical History Past Medical History: Cancer, GERD/Reflux Additional Past Medical History / Comment(s): hx. leftbreast cancer History of Any Multi-Drug Resistant Organisms: None Reported Past Surgical History: Ablation, Cholecystectomy, Orthopedic Surgery Additional Past Surgical History / Comment(s): right knee surg., colonoscopy, cataract removal with lens implant, CARDIAC ABLATION. Loop monitor placement Past Anesthesia/Blood Transfusion Reactions: No Reported Reaction Past Psychological History: No Psychological Hx Reported Smoking Status: Never smoker Past Alcohol Use History: None Reported Past Drug Use History: None Reported - Past Family History Mother Family Medical History: Cancer Father Family Medical History: Cancer Medications and Allergies Home Medications Medication Instructions Recorded Confirmed Type Dicyclomine [Bentyl] 10 mg PO TID PRN 04/23/19 12/02/22 History Cholecalciferol [Vitamin D3 (25 25 mcg PO HS 10/05/21 12/02/22 History Mcg = 1000 Iu)] Famotidine [Pepcid] 20 mg PO HS 10/05/21 12/02/22 History atenoloL [Tenormin] 50 mg PO HS 10/05/21 12/02/22 History Allergies Allergy/AdvReac Type Severity Reaction Status Date / Time No Known Allergies Allergy Verified 12/02/22 09:52 Objective - Vital Signs Vital signs: Vital Signs Temp 97.8 F 10/26/23 12:21 Pulse 66 10/26/23 12:21 Resp 17 10/26/23 12:21 BP 120/74 10/26/23 12:21 Pulse Ox 99 10/26/23 12:21 FiO2 Intake & Output 10/25/23 10/26/23 10/26/23 18:59 06:59 18:59 Weight 78.471 kg - Constitutional General appearance: Present: cooperative - EENT Eyes: Present: EOMI ENT: Present: hearing grossly normal - Neck Neck: Present: normal ROM - Respiratory Respiratory: bilateral: CTA - Cardiovascular Heart sounds: normal: S1, S2 - Integumentary Integumentary: Present: normal turgor - Musculoskeletal Musculoskeletal: Present: gait normal - Psychiatric Psychiatric: Present: A&O x's 3, appropriate affect, intact judgment & insight - Additional findings Additional findings: Breast Exam: BRA: 40C inspection: Prior left breast lumpectomy radiation and postoperative changes, ri ght breast status post surgical changes Palpation: Right breast: Multi positional exam postoperative and postradiation changes. The patient complains of tenderness at the lateral aspect of the right breast. There is nothing discrete at that site. She does have a seroma at the inferior aspect of the breast Right axilla: No adenopathy of concern Left breast: Multi-positional exam post lumpectomy and radiation changes Left axilla: No adenopathy of concern Assessment and Plan Assessment: Impression: Impression: Stage I invasive lobular carcinoma right breast 2022, treated with lumpectomy via mammoplasty incision Patient status post left breast lumpectomy in 2008 for invasive carcinoma genteic testing VUS patient declined MRI of the breast Pain lateral aspect right breast Pain right shoulder Plan Physical therapy right shoulder Attempted aspiration seroma right breast Repeat right breast ultrasound 3 months Repeat bilateral mammogram December 02 with appointment at that time (prior to surgery a second lesion had been noted in the right breast which was to be removed at her surgery, will follow this site) CC: Dr. Manning
== END ==
LOC: WWCWWP 10:56
PROVIDERS: ATTEND Surgery
DX: C50.911 Malignant neoplasm of unspecified site of right female breast (principal); N64.89 Other specified disorders of breast; N64.4 Mastodynia; M25.511 Pain in right shoulder; Z17.0 Estrogen receptor positive status [ER+]; Z48.817 Encounter for surgical aftercare following surgery on the skin and subcutaneous tissue; Z92.3 Personal history of irradiation; Z92.21 Personal history of antineoplastic chemotherapy; Z80.3 Family history of malignant neoplasm of breast; Z98.890 Other specified postprocedural states

== ENCOUNTER → 2023-12-06 | Outpatient (CLI) | payer MEDICARE, OTHER ==
--- NOTE | 2023-12-06 14:14 | MM ---
Reason for Exam: Hx of breast cancer, conservation therapy. Last mammogram was performed 1 year(s) and 1 month(s) ago. Patient History: Menarche at age 11. Patient has no children. Postmenopausal. Breast cancer, left, age 51. Breast cancer, right, age 67. Breast cancer, right, age 67. Previous chest radiation therapy at age 52. Hormonal Contraceptives, from age 15 until age 48. 02/14/2023, Lumpectomy on the Right side. 02/14/2023, Malignant US breast localization RT on the right side. 12/08/2022, Malignant US biopsy breast VAD RT on the right side. 2008, Radiation Therapy on the left side. 2008, Chemotherapy. Maternal aunt had breast cancer, age 53. Mother had breast cancer, age 53. Prior Study Comparison: 11/25/2020 Bilateral MG screening mammo w CAD - 2, [facility]. 11/25/2020 Bilateral MG screening mammo w/o cad, [facility]. 11/26/2021 Bilateral MG 3D screening mammo w/cad, [facility]. 11/28/2022 Bilateral MG 3D screening mammo w/cad, [facility]. 12/01/2022 Bilateral MG 3D work up w/cad [facility]ARYC[facility], [facility]. 12/08/2022 Right MG diagnostic mammo RT wo CAD, [facility]. 02/14/2023 Right MG diagnostic mammo RT wo CAD, [facility]. Tissue Density: The breasts are heterogeneously dense, which may obscure small masses. Findings: Analyzed By CAD. Redemonstration of trauma. No new suspicious masses, calcifications or distortions. Overall Assessment: Incomplete: need additional imaging evaluation, BI-RAD 0 Management: Diagnostic Breast Ultrasound of the right breast. Results were given to the patient verbally at the time of exam. Patient should continue monthly self-breast exams. A clinical breast exam by your physician is recommended on an annual basis. This exam should not preclude additional follow-up of suspicious palpable abnormalities. Note on Rhonda scores and lifetime risk: 1. A Rhonda score greater than 3% is considered moderate risk. If this is the case, consider specialist referral to assess eligibility for a risk reducing agent. 2. If overall lifetime risk for the development of breast cancer is 20% or higher, the patient may qualify for future screening with alternating mammogram and breast MRI. Electronically signed and approved by: Nikunj Grant, DO
--- NOTE | 2023-12-06 14:20 | USB ---
Reason for Exam: Follow-up at short interval from prior study. Patient History: Menarche at age 11. Patient has no children. Postmenopausal. Breast cancer, left, age 51. Breast cancer, right, age 67. Breast cancer, right, age 67. Previous chest radiation therapy at age 52. Hormonal Contraceptives, from age 15 until age 48. 02/14/2023, Lumpectomy on the Right side. 02/14/2023, Malignant US breast localization RT on the right side. 12/08/2022, Malignant US biopsy breast VAD RT on the right side. 2008, Radiation Therapy on the left side. 2008, Chemotherapy. Maternal aunt had breast cancer, age 53. Mother had breast cancer, age 53. Technique: Method: Targeted. Prior Study Comparison: 12/01/2022 Bilateral MG 3D work up w/cad [facility], [facility]. 12/08/2022 Right MG diagnostic mammo RT wo CAD, [facility]. 02/14/2023 Right MG diagnostic mammo RT wo CAD, [facility]. Findings: The lower section of the breast of the right breast, the axilla of the right breast and the retroareolar of the right breast were scanned. Technique utilized:US breast limited RT Image; Ultrasound imaging of: Area of concern, retroareolar region and axilla. Redemonstration of organizing fluid collections compatible with seroma. Additionally there is similar-appearing axially tail cyst. Retroareolar edema also suggested. Dominant fluid collection 8:00 10 cm from nipple measuring up to 4.4 x 8.6 x 1.7 cm. Clinical management for this fluid collection. 5:00 fluid collection 5 cm from nipple measuring 4.6 x 4.5 x 1.5 cm. The 8:00 fluid collection may be larger given differences in measuring technique. Additional short-term follow up in 3 months recommended to ensure stability. Overall Assessment: Probably benign, BI-RAD 3 Management: Diagnostic Breast Ultrasound of the right breast in 3 months. A clinical breast exam by your physician is recommended on an annual basis and results should be correlated with mammographic findings. This exam should not preclude additional follow-up of suspicious palpable abnormalities. Results were given to the patient verbally at the time of exam. Electronically signed and approved by: Nikunj Grant DO
--- NOTE | 2023-12-08 16:38 | BD ---
EXAMINATION TYPE: Axial Bone Density DATE OF EXAM: 12/06/2023 CLINICAL HISTORY: 68 years old Female. ICD-10 CODE: M818 DISUSE OSTEOPOROSIS Height: 5 ft 6 1/2 in Weight: 173 FRAX RISK QUESTIONS: Alcohol (3 or more units per day): no Family History (Parent hip fracture): no Glucocorticoids (More than 3mos): yes (Ex: prednisone, prednisolone, methylprednisolone, dexamethasone, and hydrocortisone). History of Fracture in Adulthood: yes Secondary Osteoporosis: 1. Type 1 Diabetes: no 2. Hyperthyroidism: no 3. Menopause before 45: no 4. Malnutrition: no 5. Chronic liver disease: no Rheumatoid Arthritis: no Current Tobacco Use: no RISK FACTORS HISTORY OF: Surgery to Spine/Hip(right/left)/Wrist (right/left): no MEDICATIONS: Thyroid Medications: none Osteoporosis Medications: none EXAM MEASUREMENTS: Bone mineral densitometry was performed using the [employer] System. Bone mineral density as measured about the Lumbar spine is: ----- L1-L4(G/cm2): 1.177 T Score Values are as follows: ----- L1: -1.2 ----- L2: -0.8 ----- L3: 1.9 ----- L4: 0.3 ----- L1-L4: 0.0 Z Score Values are as follows: ----- L1: 0.0 ----- L2: 0.5 ----- L3: 3.1 ----- L4: 1.5 ----- L1-L4: 1.2 Bone mineral density has: increased 3.8 % since study of: 2021 Bone mineral density about the R hip (g/cm2): 0.810 Bone mineral density about the L hip (g/cm2): 0.828 T Score values are as follows: -----R Neck: -1.6 -----L Neck: -1.5 -----R Total: -1.7 -----L Total: -1.3 Z Score values are as follows: -----R Neck: -0.2 -----L Neck: -0.1 -----R Total: -0.5 -----L Total: -0.2 Bone mineral density has: decreased -2.7 % since study of: 2021 FRAX%s: The graph provided illustrates a 16.3 % chance for a major osteoporotic fx and a 2.5 % chance for the hips probability for fx in 10 years time. IMPRESSION: Osteopenia (T Score between -2.5 and -1). There is slightly increased risk of fracture and the patient may be considered for treatment. Re-Screen 2-5 years. NOTE: T-SCORE=SD OF THE YOUNG ADULT MEAN.
== END | disposition home or self-care (01) ==
LOC: RADMAMWWP 12:50
PROVIDERS: ATTEND Internal Medicine Hematology & Oncology
DX: C50.411 Malignant neoplasm of upper-outer quadrant of right female breast
CPT/HCPCS: 77062; 77066; 77080

== ENCOUNTER → 2024-04-29 | Outpatient (CLI) | payer MEDICARE, OTHER ==
[2024-04-29 10:39] LABS: Basophils # (A) 0.07 X 10*3/uL (0.00-0.10); Basophils % (A) 0.8 %; Eosinophils # (A) 0.18 X 10*3/uL (0.04-0.35); Eosinophils % (A) 2.1 %; HCT 44.6 % (37.2-46.3); HGB 14.1 g/dL (12.0-15.0); Lymphocytes # (A) 1.54 X 10*3/uL (0.90-5.00); Lymphocytes % (A) 18.1 %; MCH 30.1 pg (27.0-32.0); MCHC 31.6 g/dL (32.0-37.0); MCV 95.1 FL (80.0-97.0); Mean Platelet Volume 10.1 FL (9.5-12.2); Monocytes # (A) 0.87 X 10*3/uL (0.20-1.00); Monocytes % (A) 10.2 %; NRBC Per 100 WBC 0 X 10*3/uL (0.00-0.01); Neutrophils # (A) 5.81 X 10*3/uL (1.80-7.70); Neutrophils % (A) 68.6 %; Platelet Count 272 X 10*3/uL (140-440); RBC 4.69 X 10*6/uL (4.10-5.20); RDW 12.2 % (11.5-14.5); WBC 8.49 X 10*3/uL (4.50-10.00)
[2024-04-29 10:57] LABS: ALT 22 U/L (8-44); AST 22 U/L (13-35); Albumin 4.2 g/dL (3.8-4.9); Albumin/Globulin Ratio 1.91 Ratio (1.60-3.17); Alkaline Phosphatase 91 U/L (41-126); BUN/Creat Ratio 18.14 Ratio (12.00-20.00); Blood Urea Nitrogen 12.7 mg/dL (9.0-27.0); Calcium 9.6 mg/dL (8.7-10.3); Carbon Dioxide 26.3 mmol/L (21.6-31.8); Chloride 113 mmol/L (96-109); Chol/HDL Ratio 2.46 Ratio; Globulin 2.2 g/dL (1.6-3.3); Glucose 74 mg/dL (70-110); LDL Cholesterol,Calculated 33.3 mg/dL (0.0-131.0); Magnesium 1.9 mg/dL (1.5-2.4); Potassium 4.3 mmol/L (3.5-5.5); Sodium 151 mmol/L (135-145); Total Bilirubin 0.7 mg/dL (0.3-1.2); Total Protein 6.4 g/dL (6.2-8.2); VLDL Calculation 18.96 mg/dL (5.00-40.00)
== END | disposition home or self-care (01) ==
LOC: LABWHC1 07:08
PROVIDERS: ATTEND Nurse Practitioner Adult Health
DX: I10 Essential (primary) hypertension (principal); I25.10 Atherosclerotic heart disease of native coronary artery without angina pectoris; I47.19 Other supraventricular tachycardia; E78.5 Hyperlipidemia, unspecified
CPT/HCPCS: 36415; 80053; 80061; 83735; 84443; 85025

== ENCOUNTER → 2024-04-29 | Outpatient (CLI) | payer MEDICARE, OTHER ==
--- NOTE | 2024-04-29 09:07 | USB ---
Reason for Exam: Follow-up at short interval from prior study. Patient History: Menarche at age 11. Patient has no children. Postmenopausal. Breast cancer, left, age 51. Breast cancer, right, age 67. Breast cancer, right, age 67. Previous chest radiation therapy at age 52. Hormonal Contraceptives, from age 15 until age 48. 02/14/2023, Lumpectomy on the Right side. 02/14/2023, Malignant US breast localization RT on the right side. 12/08/2022, Malignant US biopsy breast VAD RT on the right side. 2008, Radiation Therapy on the left side. 2008, Chemotherapy. Maternal aunt had breast cancer, age 53. Mother had breast cancer, age 53. Prior Study Comparison: 12/08/2022 Right MG diagnostic mammo RT wo CAD, [facility]. 02/14/2023 Right MG diagnostic mammo RT wo CAD, [facility]. 12/06/2023 Bilateral MG 3D diag mammo w/cad [facility], [facility]. 12/06/2023 Right US breast limited RT, [facility]. Findings: The lateral section of the breast of the right breast, the lower section of the breast of the right breast, the axilla of the right breast and the retroareolar of the right breast were scanned. Technique utilized:US breast limited RT Image; Ultrasound imaging of: All 4 quadrants, the retroareolar region and axilla. No evidence for organizing mass. Stable right axillary probable cyst measuring up to 4 mm. Scar at 7:00 4 centers or nipple noted. Seroma right breast measuring up to 4.1 x 6.7 x 1.4 cm it o'clock and at 5:00 measuring up to 4.4 x 2.8 x 2.6 cm. Overall Assessment: Benign, BI-RAD 2 Management: Screening Mammogram of both breasts in 1 year. A clinical breast exam by your physician is recommended on an annual basis and results should be correlated with mammographic findings. This exam should not preclude additional follow-up of suspicious palpable abnormalities. Results were given to the patient verbally at the time of exam. [facility], , 04/29/2024 9:03 AM. Electronically signed and approved by: Nikunj Grant DO
== END | disposition home or self-care (01) ==
LOC: RADMAMWWP 08:09
PROVIDERS: ATTEND Internal Medicine Hematology & Oncology
DX: Z85.3 Personal history of malignant neoplasm of breast (principal); Z78.0 Asymptomatic menopausal state; Z80.3 Family history of malignant neoplasm of breast

== ENCOUNTER → 2024-04-29 | Outpatient (CLI) | payer MEDICARE, OTHER | END | disposition home or self-care (01) | LOC: RADUSWWP 07:01 | PROVIDERS: ATTEND Internal Medicine Hematology & Oncology | DX: Z53.9 Procedure and treatment not carried out, unspecified reason (principal) ==